=== PATIENT | male | born 1945 | race Caucasian/White ===

== ENCOUNTER 2020-08-16 07:14 | Inpatient (IN) ==
--- NOTE | 2020-08-16 08:52 | Emergency Department Note ---
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 He presents with back pain that started last night at 9PM. Initially started in the middle of his back but says now it has moved to his right side below his ribs. He says the pain began out of nowhere and he denies trauma, heavy lifting, or any other physical activity out of the ordinary for him. He denies having issues with back pain in the past. Does take APAP 1000mg every night for shoulder pain. The pain he has now is not associated with movement and he says it is constant. Does not radiate and not worse with movement of his legs. No pelvic/perineal numbness. Denies urinary changes including and noticeable blood in the urine. Reports mild nausea but no vomiting. No history of kidney stones. Denies fever, chills, unexpected weight changes, night sweats, abdominal pain, CP, palpitations, WISE, dizziness, neuro symptoms, MSK weakness/numbness. Home Medications Medication Instructions Recorded Confirmed Type ascorbic acid (vitamin C) 500 mg PO DAILY 08/16/20 08/16/20 History aspirin [Aspir-81] 81 mg PO DAILY 08/16/20 08/16/20 History atorvastatin 40 mg PO DAILY 08/16/20 08/16/20 History lansoprazole 30 mg PO DAILY 08/16/20 08/16/20 History lisinopril 40 mg PO DAILY 08/16/20 08/16/20 History lutein 20 mg PO DAILY 08/16/20 08/16/20 History gh-cbo-GR-Ce-Bf-ohsfipw-lutein 1 tab PO DAILY 08/16/20 08/16/20 History [Centrum] vitamin B complex [B Complex] 1 tab PO DAILY 08/16/20 08/16/20 History vitamin E 400 unit PO DAILY 08/16/20 08/16/20 History Allergies Allergy/AdvReac Type Severity Reaction Status Date / Time alprazolam Allergy Fainting Unverified 08/16/20 08:49 codeine Allergy Diarrhea/ Unverified 08/16/20 08:49 Vomiting rosuvastatin Allergy Diarrhea Unverified 08/16/20 08:49 warfarin Allergy Confusion Unverified 08/16/20 08:49 Past Med/Surg History Medical History Dyslipidemia GERD (gastroesophageal reflux disease) History of meningioma History of pulmonary embolism after craniotomy in 1998 Hydronephrosis of left kidney Chronic since surgery in 2010 due to "kink" in ureter from procedure Hypertension 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 w/ ileal conduit/ostomy at [facility] in 2010 Surgical History H/O partial nephrectomy Right 2011 - due to benign tumor History of craniotomy History of hemorrhoidectomy History of ileal conduit Status post radical cystoprostatectomy Social History Smoking Status: Current every day smoker Tobacco Type: Cigarettes Cigarettes Per Day: 10; Do You Dip or Chew Tobacco: No; Hx Alcohol Use: Yes Alcohol type: hard liquor Alcohol Intake Frequency Comment: 4 drinks/day Hx Substance Use: No Preferred Language: Tajik Communication Ability: Effective Medical Scheduler Required: No Beliefs That Will Affect Care: None marital status: Current Living Situation: Spouse Feels Safe at Home: Yes Assistive Devices: None Review of Systems See HPI for pertinent positives & negatives. and A total of 10 systems reviewed and were otherwise negative Physical Exam Vital Signs Vital Signs - 24 hr 08/16/20 07:16 08/16/20 07:30 08/16/20 07:41 Temperature 36.6 C Temperature Source Oral Pulse Rate 85 84 83 Pulse Rate from SpO2 Sensor 85 84 Pulse Rhythm Regular Pulse Strength Normal Respiratory Rate 18 17 18 Respiratory Effort / Characteristics Non-Labored Spontaneous Respiratory Depth Normal Respiratory Pattern Regular Blood Pressure 177/101 H 164/95 H Blood Pressure Mean 126 118 Blood Pressure Position Sitting Pulse Oximetry 98 100 100 Oxygen Delivery Method Room Air Sepsis Recent Fever Within 48 Hours No Sepsis New/Unexplained Change in Mental Status N/A Sepsis Action Taken by Nursing No Action Required 08/16/20 07:50 08/16/20 08:00 08/16/20 08:01 Temperature Temperature Source Pulse Rate 81 69 68 Pulse Rate from SpO2 Sensor 83 71 70 Pulse Rhythm Pulse Strength Respiratory Rate 18 14 13 Respiratory Effort / Characteristics Respiratory Depth Respiratory Pattern Blood Pressure 169/88 H Blood Pressure Mean 115 Blood Pressure Position Pulse Oximetry 100 100 100 Oxygen Delivery Method Sepsis Recent Fever Within 48 Hours Sepsis New/Unexplained Change in Mental Status Sepsis Action Taken by Nursing 08/16/20 08:10 08/16/20 08:20 08/16/20 08:30 Temperature Temperature Source Pulse Rate 67 72 74 Pulse Rate from SpO2 Sensor 70 70 84 Pulse Rhythm Pulse Strength Respiratory Rate 12 14 12 Respiratory Effort / Characteristics Respiratory Depth Respiratory Pattern Blood Pressure 165/88 H Blood Pressure Mean 113 Blood Pressure Position Pulse Oximetry 96 100 93 Oxygen Delivery Method Sepsis Recent Fever Within 48 Hours Sepsis New/Unexplained Change in Mental Status Sepsis Action Taken by Nursing 08/16/20 08:40 08/16/20 08:50 08/16/20 08:57 Temperature Temperature Source Pulse Rate 80 85 86 Pulse Rate from SpO2 Sensor 86 Pulse Rhythm Regular Pulse Strength Respiratory Rate 13 21 20 Respiratory Effort / Characteristics Respiratory Depth Respiratory Pattern Blood Pressure Blood Pressure Mean Blood Pressure Position Pulse Oximetry 99 98 Oxygen Delivery Method Room Air Sepsis Recent Fever Within 48 Hours Sepsis New/Unexplained Change in Mental Status Sepsis Action Taken by Nursing 08/16/20 09:00 08/16/20 09:10 08/16/20 09:20 Temperature Temperature Source Pulse Rate 69 76 74 Pulse Rate from SpO2 Sensor 73 74 Pulse Rhythm Pulse Strength Respiratory Rate 20 13 18 Respiratory Effort / Characteristics Respiratory Depth Respiratory Pattern Blood Pressure 167/104 H Blood Pressure Mean 125 Blood Pressure Position Pulse Oximetry 99 99 Oxygen Delivery Method Sepsis Recent Fever Within 48 Hours Sepsis New/Unexplained Change in Mental Status Sepsis Action Taken by Nursing 08/16/20 09:30 08/16/20 09:31 08/16/20 09:40 Temperature Temperature Source Pulse Rate 70 73 87 Pulse Rate from SpO2 Sensor 70 73 80 Pulse Rhythm Pulse Strength Respiratory Rate 23 18 29 H Respiratory Effort / Characteristics Respiratory Depth Respiratory Pattern Blood Pressure 163/94 H Blood Pressure Mean 117 Blood Pressure Position Pulse Oximetry 99 99 93 Oxygen Delivery Method Sepsis Recent Fever Within 48 Hours Sepsis New/Unexplained Change in Mental Status Sepsis Action Taken by Nursing Vital signs reviewed. General: Well-appearing 74 yo male , in no significant distress. HEENT: No scleral icterus, PERRLA, neck supple. Atraumatic. Cardiovascular: Regular rate and rhythm, no extra sounds. Pulmonary: Clear to auscultation bilaterally, normal work of breathing. Abdomen: Soft, nontender, nondistended, positive bowel sounds. Musculoskeletal: Atraumatic, no peripheral edema. Neurologic: Patient awake alert and oriented x 3 Skin: Warm, dry, no rash Course Administered Medications Acetaminophen (Acetaminophen 325 Mg Tab) 650 mg PO Q6H PRN PRN Reason: pain/fever Stop: 09/15/20 14:06 Last Admin: 08/18/20 21:08 Dose: 650 mg Documented by: [id number] Admin: 08/18/20 06:04 Dose: 650 mg Documented by: [id number] Acetaminophen (Acetaminophen 500 Mg Tab) 1,000 mg PO HS [facility] Stop: 09/15/20 20:59 Last Admin: 08/18/20 21:39 Dose: 1,000 mg Documented by: [id number] Admin: 08/17/20 21:06 Dose: 1,000 mg Documented by: [id number] Admin: 08/16/20 21:00 Dose: 1,000 mg Documented by: [id number] Aspirin (Aspirin 81 Mg Ectab) 81 mg PO DAILY [facility] Stop: 09/16/20 08:59 Last Admin: 08/19/20 08:07 Dose: 81 mg Documented by: [id number] Admin: 08/18/20 09:04 Dose: 81 mg Documented by: [id number] Admin: 08/17/20 08:33 Dose: 81 mg Documented by: [id number] Atorvastatin Calcium (Atorvastatin 40 Mg Tab) 40 mg PO DAILY [facility] Stop: 09/16/20 08:59 Last Admin: 08/19/20 08:07 Dose: 40 mg Documented by: [id number] Admin: 08/18/20 09:05 Dose: 40 mg Documented by: [id number] Admin: 08/17/20 09:25 Dose: 40 mg Documented by: [id number] Heparin Sodium (Porcine) (Heparin Sod 5,000 Unit/0.5 Ml Vial) 5,000 units SQ Q8 [facility]ARA Stop: 09/15/20 14:06 Last Admin: 08/19/20 05:53 Dose: 5,000 units Documented by: [id number] Admin: 08/18/20 21:07 Dose: 5,000 units Documented by: [id number] Admin: 08/18/20 15:35 Dose: 5,000 units Documented by: [id number] Admin: 08/18/20 06:04 Dose: 5,000 units Documented by: [id number] Admin: 08/17/20 21:06 Dose: 5,000 units Documented by: [id number] Admin: 08/17/20 14:05 Dose: 5,000 units Documented by: [id number] Admin: 08/17/20 05:05 Dose: 5,000 units Documented by: [id number] Admin: 08/16/20 21:00 Dose: 5,000 units Documented by: [id number] Admin: 08/16/20 16:46 Dose: Not Given Documented by: [id number] Ceftriaxone Sodium 2,000 mg/ (Dextrose) 70 mls @ 100 mls/hr IV DAILY TAMARA; Protocol Stop: 08/26/20 13:14 Last Infusion: 08/19/20 08:48 Dose: 0 mls/hr Documented by: [id number] Admin: 08/19/20 08:06 Dose: 100 mls/hr Documented by: [id number] Infusion: 08/18/20 10:50 Dose: 0 mls/hr Documented by: [id number] Admin: 08/18/20 09:03 Dose: 100 mls/hr Documented by: [id number] Infusion: 08/17/20 10:28 Dose: 0 mls/hr Documented by: [id number] Admin: 08/17/20 09:25 Dose: 100 mls/hr Documented by: [id number] Infusion: 08/16/20 17:27 Dose: 0 mls/hr Documented by: [id number] Admin: 08/16/20 16:45 Dose: 100 mls/hr Documented by: [id number] Sodium Chloride (Nss 1000ml) 1,000 mls @ 100 mls/hr IV .Q10H TAMARA Stop: 09/16/20 10:14 Last Admin: 08/19/20 05:53 Dose: 100 mls/hr Documented by: [id number] Infusion: 08/19/20 05:53 Dose: 100 mls/hr Documented by: [id number] Admin: 08/18/20 21:12 Dose: 100 mls/hr Documented by: [id number] Infusion: 08/18/20 21:12 Dose: 100 mls/hr Documented by: [id number] Admin: 08/18/20 18:26 Dose: 100 mls/hr Documented by: [id number] Infusion: 08/18/20 18:26 Dose: 100 mls/hr Documented by: [id number] Admin: 08/18/20 09:03 Dose: 100 mls/hr Documented by: [id number] Infusion: 08/18/20 09:03 Dose: 100 mls/hr Documented by: [id number] Admin: 08/18/20 01:55 Dose: 100 mls/hr Documented by: [id number] Infusion: 08/17/20 20:56 Dose: 100 mls/hr Documented by: [id number] Admin: 08/17/20 10:56 Dose: 100 mls/hr Documented by: [id number] Pantoprazole Sodium (Pantoprazole 40 Mg Tab) 40 mg PO QAM TAMARA Stop: 09/16/20 08:59 Last Admin: 08/19/20 08:07 Dose: 40 mg Documented by: [id number] Admin: 08/18/20 09:04 Dose: 40 mg Documented by: [id number] Admin: 08/17/20 08:33 Dose: 40 mg Documented by: [id number] Discontinued Medications Hydromorphone HCl (Hydromorphone Inj 0.5 Mg/0.5 Ml Syr) 0.5 mg IV NOW STA Stop: 08/16/20 10:00 Last Admin: 08/16/20 10:27 Dose: 0.5 mg Documented by: [id number] Hydromorphone HCl (Hydromorphone Inj 0.5 Mg/0.5 Ml Syr) Confirm Administered Dose 0.5 mg .ROUTE .STK-MED ONE Stop: 08/17/20 01:02 Last Admin: 08/17/20 01:03 Dose: 0.5 mg Documented by: [id number] Sodium Chloride (Nss 1000ml) 1,000 mls @ 125 mls/hr IV .Q8H TAMARA Stop: 08/16/20 18:00 Last Infusion: 08/16/20 17:35 Dose: 0 mls/hr Documented by: [id number] Admin: 08/16/20 10:27 Dose: 125 mls/hr Documented by: [id number] Piperacillin Sod/Tazobactam Sod (Zosyn) 4.5 gm in 120 mls @ 240 mls/hr IV NOW ONE Stop: 08/16/20 11:21 Last Infusion: 08/16/20 13:00 Dose: 0 mls/hr Documented by: [id number] Admin: 08/16/20 11:17 Dose: 240 mls/hr Documented by: [id number] Sodium Chloride (1/2 Nss) 1,000 mls @ 80 mls/hr IV .[id number] TAMARA Stop: 08/17/20 06:29 Last Admin: 08/16/20 19:13 Dose: Not Given Documented by: [id number] Sodium Chloride (Nss 1000ml) 1,000 mls @ 100 mls/hr IV .Q10H [facility]ARA Stop: 08/17/20 04:59 Last Infusion: 08/17/20 04:43 Dose: 0 mls/hr Documented by: [id number] Admin: 08/16/20 19:29 Dose: 100 mls/hr Documented by: [id number] Ondansetron HCl (Ondansetron Inj 2 Mg/Ml 2 Ml Vial) 4 mg IV NOW STA Stop: 08/16/20 10:00 Last Admin: 08/16/20 10:25 Dose: 4 mg Documented by: [id number] Medical Decision Making Differential Diagnosis Musculoskeletal, disc herniation, fracture, metastatic disease, cord compression, discitis, sciatica, cauda equina, infection, aortic disease, renal colic, gastrointestinal, as well as other pathologies. Medical Records Attestation: I reviewed the patient's medical records. Home Medications Current Medication List: was personally reviewed by me Laboratory Data Attestation: I reviewed the patient's lab results. Result diagrams: 08/18/20 05:47 08/19/20 06:38 Lab Results 08/16/20 08/16/20 08/16/20 Range/Units 08:51 08:51 10:35 WBC 12.80 H (4.8-10.8) K/uL RBC 3.70 L (4.7-6.1) M/uL Hgb 13.3 L (14.0-18.0) g/dL Hct 38.9 L (42-52) % MCV 105.1 H (80-100) fL MCH 35.9 H (25-34) pg MCHC 34.2 (32-36) g/dL RDW Std Deviation 59.4 H (36.4-46.3) fL RDW Coeff of Jayesh 15.3 H (11.5-14.5) % Plt Count 244 (130-400) K/uL MPV 10.9 H (7.4-10.4) fL Immature Gran % (Auto) 0.2 % Neut % (Auto) 87.9 % Lymph % (Auto) 8.7 % [place] % (Auto) 3.1 % Eos % (Auto) 0.0 % Baso % (Auto) 0.1 % Neut # (Auto) 11.25 H (1.4-6.5) K/uL Lymph # (Auto) 1.11 L (1.2-3.4) K/uL [place] # (Auto) 0.40 (0.11-0.59) K/uL Eos # (Auto) 0.00 (0-0.5) K/uL Baso # (Auto) 0.01 (0-0.2) K/uL Immature Gran # (Auto) 0.03 H (0.00-0.02) K/uL Sodium 143 (136-145) mmol/L Potassium 4.0 (3.5-5.1) mmol/L Chloride 111 H (98-107) mmol/L Carbon Dioxide 25 (21-32) mmol/L Anion Gap 7.0 (3-11) BUN 23 H (7-18) mg/dl Creatinine 1.79 H (0.6-1.4) mg/dl Est Cr Clr Drug Dosing 34.5 ml/min Est GFR ( Amer) 42.0 ml/min Est GFR (Non-Af Amer) 36.3 ml/min BUN/Creatinine Ratio 12.7 (10-20) Glucose 142 H (70-99) mg/dl Calcium 9.3 (8.5-10.1) mg/dl Total Bilirubin 0.6 (0.2-1) mg/dl AST 14 L (15-37) U/L ALT 23 (12-78) U/L Alkaline Phosphatase 77 (45-117) U/L Total Protein 7.4 (6.4-8.2) gm/dl Albumin 3.8 (3.4-5.0) gm/dl Globulin 3.6 (2.5-4.0) gm/dl Albumin/Globulin Ratio 1.0 (0.9-2) Urine Color Yellow Urine Appearance Cloudy A (Clear) Urine pH 8.5 H (4.5-7.5) Ur Specific [place] 1.010 (1.000-1.030) Urine Protein Negative (Negative) Urine Glucose (UA) Negative (Negative) Urine Ketones Negative (Negative) Urine Blood 3+ H (Negative) Urine Nitrite Positive A (Negative) Urine Bilirubin Negative (Negative) Urine Urobilinogen Negative (Negative) Ur Leukocyte Esterase Negative (Negative) Urine WBC (Auto) 10-30 H (0-5) /hpf Urine RBC (Auto) 10-30 H (0-4) /hpf U Hyaline Cast (Auto) 5-10 H (0-5) /lpf U Epithel Cells (Auto) >30 H (0-5) /lpf Urine Bacteria (Auto) 4+ H (Negative) Ur Renal Epithelial Cell Not Reportable COVID-19 Eval Order SARS-CoV-2 (PCR) (Negative) 08/16/20 08/16/20 Range/Units 11:06 11:06 WBC (4.8-10.8) K/uL RBC (4.7-6.1) M/uL Hgb (14.0-18.0) g/dL Hct (42-52) % MCV (80-100) fL MCH (25-34) pg MCHC (32-36) g/dL RDW Std Deviation (36.4-46.3) fL RDW Coeff of Jayesh (11.5-14.5) % Plt Count (130-400) K/uL MPV (7.4-10.4) fL Immature Gran % (Auto) % Neut % (Auto) % Lymph % (Auto) % [place] % (Auto) % Eos % (Auto) % Baso % (Auto) % Neut # (Auto) (1.4-6.5) K/uL Lymph # (Auto) (1.2-3.4) K/uL [place] # (Auto) (0.11-0.59) K/uL Eos # (Auto) (0-0.5) K/uL Baso # (Auto) (0-0.2) K/uL Immature Gran # (Auto) (0.00-0.02) K/uL Sodium (136-145) mmol/L Potassium (3.5-5.1) mmol/L Chloride (98-107) mmol/L Carbon Dioxide (21-32) mmol/L Anion Gap (3-11) BUN (7-18) mg/dl Creatinine (0.6-1.4) mg/dl Est Cr Clr Drug Dosing ml/min Est GFR ( Amer) ml/min Est GFR (Non-Af Amer) ml/min BUN/Creatinine Ratio (10-20) Glucose (70-99) mg/dl Calcium (8.5-10.1) mg/dl Total Bilirubin (0.2-1) mg/dl AST (15-37) U/L ALT (12-78) U/L Alkaline Phosphatase (45-117) U/L Total Protein (6.4-8.2) gm/dl Albumin (3.4-5.0) gm/dl Globulin (2.5-4.0) gm/dl Albumin/Globulin Ratio (0.9-2) Urine Color Urine Appearance (Clear) Urine pH (4.5-7.5) Ur Specific [place] (1.000-1.030) Urine Protein (Negative) Urine Glucose (UA) (Negative) Urine Ketones (Negative) Urine Blood (Negative) Urine Nitrite (Negative) Urine Bilirubin (Negative) Urine Urobilinogen (Negative) Ur Leukocyte Esterase (Negative) Urine WBC (Auto) (0-5) /hpf Urine RBC (Auto) (0-4) /hpf U Hyaline Cast (Auto) (0-5) /lpf U Epithel Cells (Auto) (0-5) /lpf Urine Bacteria (Auto) (Negative) Ur Renal Epithelial Cell COVID-19 Eval Order Covid19 at [facility] SARS-CoV-2 (PCR) NEGATIVE (Negative) Imaging Data Radiologist's Impression: Abdomen/Pelvis CT 08/16/20 09:[address] WITHOUT CONTRAST CT DOSE: 308.09 mGy.cm HISTORY: Right upper quadrant pain. Right-sided back pain. TECHNIQUE: Multiaxial CT images of the abdomen and pelvis were performed without contrast. A dose lowering technique was utilized adhering to the principles of ALARA. COMPARISON STUDY: None. FINDINGS: Mild dependent changes seen at the lung bases. No pneumoperitoneum. No pneumatosis. No suspicious lytic or blastic osseous lesions. There is a 1.5 cm hypodense lesion within the posterior segment of the right hepatic lobe. This is incompletely characterized on this noncontrast study but favors a cyst. The unenhanced gallbladder, spleen, and pancreas are unremarkable. Bilateral adrenal gland nodules with the largest on the right measuring 1.3 cm. These are consistent with benign adenomas. Calcified plaque within the normal caliber abdominal aorta. No retroperitoneal lymphadenopathy. Postoperative changes consistent with prior cystoprostatectomy and right lower quadrant ileal loop div ersion. There is extensive bilateral perinephric edema/fat stranding with bilateral urothelial thickening within the renal collecting systems and ureters. There is also right-sided periureteral fat stranding. There is mild right and moderate left hydronephrosis. No renal or ureteral stones identified. The hydronephrosis extends to the anastomosis with the ileal loop. Small focus of fat and calcification within the lateral aspect of the right kidney. This favors old postoperative change. There is greater than expected inflammatory change anterior to the right kidney and located between the second portion of the duodenum and ascending colon best seen on image 146. This is indeterminate. No definite bowel wall thickening. However, a focal duodenitis/peptic ulcer disease or less likely diverticulitis/colitis would be considered in the differential diagnosis. This could relate to the right renal abnormality. However, this is more anterior than expected to suggest a right renal etiology. Diastases with a midline abdominal wall hernia containing a few loops of large and small bowel. No dilated loops of bowel to suggest an obstruction. The visualized appendix is unremarkable. Overall, there are suboptimal evaluation for bowel pathology due to the lack of intravenous and oral contrast. IMPRESSION: 1. Postoperative changes consistent with prior cystoprostatectomy and right lower quadrant ileal loop diversion. 2. Mild right and moderate left hydronephrosis to the level of the ileal anastomosis. No renal or ureteral stones identified. 3. Bilateral perinephric fat stranding with bilateral urothelial thickening likely representing a bilateral pyelitis/pyelonephritis. 4. A focal area of fat stranding/edema within the right upper quadrant located between the second portion of the duodenum and adjacent ascending colon. This is anterior to the right kidney. This is indeterminate. There is no definite bowel wall thickening. However, a focal duodenitis/peptic ulcer disease or less likely an adjacent diverticuli/colitis would be considered in the differential diagnosis. Inflammatory change secondary to the adjacent right renal abnormality is considered less likely but not entirely excluded. 5. Additional findings as described above. ACT 112: Negative or not required by law. Electronically signed by: Vazquez Yu M.D. 08/16/2020 10:45 AM MDM Narrative This patient was seen in concert with Dr. Hills and we discussed and agreed upon the history, physical, assessment, and plan. See attending's note for details. This patient evaluated and appeared to be in no significant distress. An order for cardiac monitoring was placed and the patient is noted to be in a normal sinus rhythm at 81 bpm. Patient's urinalysis is concerning for infection. CT scan of the abdomen pelvis was performed and reveals a bilateral hydronephrosis with evidence of pyelonephritis. Patient was medicated with IV Zosyn. He was hydrated with normal saline solution. Patient does have a small elevation of the WBC, moderate renal insufficiency. Case was discussed with the hospitalist service given his multiple comorbidities and surgical complication. Case was discussed with the hospitalist service for further management. Impression & Plan Bilateral hydronephrosis, Pyelonephritis, acute, Presence of urostomy Discharge Plan Visit Data Chief Complaint: Back Injury/Pain Stated Complaint: BACK PAIN ED Provider: [facility] Midlevel Provider: Victor M Garcia. Discharge Problem: Bilateral hydronephrosis, Pyelonephritis, acute, Presence of urostomy Patient Disposition: Admitted As Inpatient Discharge Instructions Interventions: ED Discharge Assessment Last Done: 08/16/20 14:09 Resident Activity Tracking Resident Involvement: Resident Care Provided Care Provided: Adult ED
[2020-08-16 09:33] LABS: Basophils # (auto) 0.01 K/uL (0-0.2); Basophils % (auto) 0.1 %; Hematocrit (blood only) 38.9 % (42-52); Hemoglobin 13.3 g/dL (14.0-18.0); Immature Granulocytes # (auto) 0.03 K/uL (0.00-0.02); Immature Granulocytes % (auto) 0.2 %; Lymphocytes # (auto) 1.11 K/uL (1.2-3.4); Lymphocytes % (auto) 8.7 %; Mean Corpuscular Hemoglobin 35.9 pg (25-34); Mean Corpuscular Hgb Conc 34.2 g/dL (32-36); Mean Corpuscular Volume 105.1 fL (80-100); Mean Platelet Volume 10.9 fL (7.4-10.4); Monocytes % (auto) 3.1 %; Neutrophils # (auto) 11.25 K/uL (1.4-6.5); Neutrophils % (auto) 87.9 %; Platelet Count 244 K/uL (130-400); RDW Coefficient of Variation 15.3 % (11.5-14.5); RDW Standard Deviation 59.4 fL (36.4-46.3)
[2020-08-16 09:51] LABS: Albumin Level 3.8 gm/dl (3.4-5.0); BUN Creatinine Ratio 12.7 (10-20); Calcium 9.3 mg/dl (8.5-10.1); Creatinine Clr Calc Pharmacy 34.5 ml/min; Est GFR (Non-African American) 36.3 ml/min
[2020-08-16 09:54] LABS: Bilirubin,Total 0.6 mg/dl (0.2-1); Globulin 3.6 gm/dl (2.5-4.0); Total Protein 7.4 gm/dl (6.4-8.2)
[2020-08-16] MEDS ORDERED: HYDROmorphone INJ 0.5 MG/0.5 ML SYR IV STA (09:59)
[2020-08-16] MEDS ORDERED: ONDANSETRON INJ 2 MG/ML 2 ML VIAL IV STA (09:59)
[2020-08-16] MEDS ORDERED: SODIUM CHLORIDE 0.9% 1000ML 1,000 ML IV SCH ×2 (10:00→19:00)
[2020-08-16 10:46] LABS: Appearance Urine Cloudy (Clear); Bacteria Urine Automated 4+ (Negative); Bilirubin Urine Negative (Negative); Blood Urine 3+ (Negative); Color Urine Yellow; Epithelial Cell Urine Auto >30 /lpf (0-5); Glucose Urine UA Negative (Negative); Ketones Urine Negative (Negative); Leukocyte Esterase Urine Negative (Negative); Nitrite Urine Positive (Negative); Protein Urine Negative (Negative); Urobilinogen Urine Negative (Negative); pH Urine 8.5 (4.5-7.5)
--- NOTE | 2020-08-16 10:46 | CT Scan Report ---
ABDOMEN AND PELVIS CT WITHOUT CONTRAST CT DOSE: 308.09 mGy.cm HISTORY: Right upper quadrant pain. Right-sided back pain. TECHNIQUE: Multiaxial CT images of the abdomen and pelvis were performed without contrast. A dose lo wering technique was utilized adhering to the principles of ALARA. COMPARISON STUDY: None. FINDINGS: Mild dependent changes seen at the lung bases. No pneumoperitoneum. No pneumatosis. No susp icious lytic or blastic osseous lesions. There is a 1.5 cm hypodense lesion within the posterior segm ent of the right hepatic lobe. This is incompletely characterized on this noncontrast study but favor s a cyst. The unenhanced gallbladder, spleen, and pancreas are unremarkable. Bilateral adrenal gland nodules with the largest on the right measuring 1.3 cm. These are consistent with benign adenomas. Ca lcified plaque within the normal caliber abdominal aorta. No retroperitoneal lymphadenopathy. Postope rative changes consistent with prior cystoprostatectomy and right lower quadrant ileal loop diversion . There is extensive bilateral perinephric edema/fat stranding with bilateral urothelial thickening w ithin the renal collecting systems and ureters. There is also right-sided periureteral fat stranding. There is mild right and moderate left hydronephrosis. No renal or ureteral stones identified. The hy dronephrosis extends to the anastomosis with the ileal loop. Small focus of fat and calcification wit hin the lateral aspect of the right kidney. This favors old postoperative change. There is greater th an expected inflammatory change anterior to the right kidney and located between the second portion o f the duodenum and ascending colon best seen on image 146. This is indeterminate. No definite bowel w all thickening. However, a focal duodenitis/peptic ulcer disease or less likely diverticulitis/coliti s would be considered in the differential diagnosis. This could relate to the right renal abnormality . However, this is more anterior than expected to suggest a right renal etiology. Diastases with a mi dline abdominal wall hernia containing a few loops of large and small bowel. No dilated loops of hien l to suggest an obstruction. The visualized appendix is unremarkable. Overall, there are suboptimal e valuation for bowel pathology due to the lack of intravenous and oral contrast. IMPRESSION: 1. Postoperative changes consistent with prior cystoprostatectomy and right lower quadrant ileal loop diversion. 2. Mild right and moderate left hydronephrosis to the level of the ileal anastomosis. No renal or ure teral stones identified. 3. Bilateral perinephric fat stranding with bilateral urothelial thickening likely representing a rj ateral pyelitis/pyelonephritis. 4. A focal area of fat stranding/edema within the right upper quadrant located between the second por tion of the duodenum and adjacent ascending colon. This is anterior to the right kidney. This is inde terminate. There is no definite bowel wall thickening. However, a focal duodenitis/peptic ulcer disea se or less likely an adjacent diverticuli/colitis would be considered in the differential diagnosis. Inflammatory change secondary to the adjacent right renal abnormality is considered less likely but n ot entirely excluded. 5. Additional findings as described above. ACT 112: Negative or not required by law. Electronically signed by: Vazquez Yu M.D. 08/16/2020 10:45 AM
[2020-08-16] MEDS ORDERED: PIPERACILLIN/TAZOBACTAM 4.5 GM/120 ML BAG IV ONE (10:52)
[2020-08-16] MEDS ORDERED: PIPERACILL/TAZOBAC CONSULT ACTIVE PRN (10:52)
--- NOTE | 2020-08-16 12:44 | History & Physical Report ---
Date of Service August 16, 2020 Assessment & Plan (1) Pyelonephritis, acute: - Urine culture pending - Given one dose of Zosyn in ED - will switch to Rocephin pending culture results. - Clear liquid diet to start due to nausea - will advance as tolerated - PRN Zofran for nausea - Gentle IVF (2) DHARA (acute kidney injury): Suspect due to #1 - Follow labs daily for improvement - creatinine outpatient in June was 1.1 (no prior labs available to me) (3) Hypertension: HOLD Lisinopril due to DHARA - reassess in AM, monitor BP (4) GERD (gastroesophageal reflux disease): - Continue outpatient PPI therapy (5) Dyslipidemia: - Continue outpatient statin therapy Pt seen and reviewed with attending physician, Dr. Heart. Plan of care discussed and as outlined above. 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 Pt reports started with a mild aching in his mid-back last evening. By 9 pm when he went to bed, it had become more severe and sharp. It took him ~3 hrs to fall asleep due to pain and associated nausea. Once he did fall asleep, the pain kept waking him up. Around 3 am, the pain move from the middle of his back to the right thoracic region. He rated it as a 6/10 at its worst. He finally came to the ED due to the severity of his symptoms. He denies significant vomiting although he reports that he did try to self-induce vomiting without success. No radiation of the pain. He denies fevers, chills, sweats, CP, SOB, palpitations, or dizziness. He did have a WISE last night but this improved with the Tylenol 1000 mg that pt takes every night for left shoulder pain due to arthritis. Currently, he is feeling better than on arrival with medications for pain and nausea. He reports chronic left hydronephrosis since his surgery in 2010, but denies hx of right hydronephrosis. His last UTI was prior to his surgery in 2010 when he presented with urosepsis. He denies change in urinary output - no decrease/increase in volume, change in color. Denies blood in urine. He follows with [facility] once a year, usually in November and reports no issues at last follow-up including negative "full body scan" monitoring for recurrent disease. Allergies Allergy/AdvReac Type Severity Reaction Status Date / Time alprazolam Allergy Fainting Unverified 08/16/20 08:49 codeine Allergy Diarrhea/ Unverified 08/16/20 08:49 Vomiting rosuvastatin Allergy Diarrhea Unverified 08/16/20 08:49 warfarin Allergy Confusion Unverified 08/16/20 08:49 Home Medications Medication Instructions Recorded Confirmed Type ascorbic acid (vitamin C) 500 mg PO DAILY 08/16/20 08/16/20 History aspirin 81 mg PO DAILY 08/16/20 08/16/20 History atorvastatin 40 mg PO DAILY 08/16/20 08/16/20 History lansoprazole 30 mg PO DAILY 08/16/20 08/16/20 History lisinopril 40 mg PO DAILY 08/16/20 08/16/20 History lutein 20 mg PO DAILY 08/16/20 08/16/20 History [id number]-Dd-vehdpgp-lutein 1 tab PO DAILY 08/16/20 08/16/20 History vitamin B complex 1 tab PO DAILY 08/16/20 08/16/20 History vitamin E 400 unit PO DAILY 08/16/20 08/16/20 History Past Med/Surg History Medical History Dyslipidemia GERD (gastroesophageal reflux disease) History of meningioma History of pulmonary embolism after craniotomy in 1998 Hydronephrosis of left kidney Chronic since surgery in 2010 due to "kink" in ureter from procedure Hypertension 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 w/ ileal conduit/ostomy at [facility] in 2010 Surgical History H/O partial nephrectomy Right 2011 - due to benign tumor History of craniotomy History of hemorrhoidectomy History of ileal conduit Status post radical cystoprostatectomy Social History Smoking Status: Current every day smoker Tobacco Type: Cigarettes Cigarettes Per Day: 10; Hx Alcohol Use: Yes Alcohol type: hard liquor Alcohol Intake Frequency Comment: 4 drinks/day Hx Substance Use: No Preferred Language: Greenlandic Communication Ability: Effective Machine Design Engineer Required: No Beliefs That Will Affect Care: None marital status: Current Living Situation: Spouse Feels Safe at Home: Yes Assistive Devices: None Review of Systems Review of Systems: All systems reviewed & are unremarkable except as noted in HPI & below Constitutional: + fatigue; no fever, no chills, no sweats and no anorexia Eyes: no diplopia and no worsening vision Ear, Nose, Mouth, Throat: no nasal congestion, no nasal discharge and no sore throat Respiratory: no cough, no dyspnea, no sputum production and no wheezing Cardiovascular: no chest pain, no palpitations, no syncope and no edema Gastrointestinal: as per Subjective / HPI; no diarrhea/loose stools and no blood in stools Genitourinary: + as per Subjective / HPI Musculoskeletal: + back pain; no neck pain, no myalgia and no muscle weakness Integumentary: no rash and no skin ulcer Neurologic: no seizure-like activity, no dizziness, no headache(s) and no confusion Psychiatric: no depression and no anxiety Physical Exam Constitutional: WD/WN, vitals as above no acute distress Eyes: + anicteric sclerae Neck: trachea midline Respiratory: no respiratory distress and no labored breathing Auscultation: lungs clear to auscultation bilaterally; no rales, no rhonchi and no wheezes Cardiovascular: Rate/Rhythm: regular rate and regular rhythm Heart Sounds: no gallop, no murmur and no cardiac rub Vessels: dorsalis pedis pulses pre sent and radial pulses present; no carotid bruit Extremities: no edema Gastrointestinal (Abdomen): Inspection/Auscultation: normal bowel sounds; abdomen not distended Percussion/Palpation: abdomen soft; abdomen nontender No CVA tenderness Musculoskeletal: Head/Neck/Chest: normocephalic, head atraumatic and neck supple Spine: no step off deformity, no thoracic spinal tenderness and no lumbar spinal tenderness Extremities: no cyanosis and no clubbing Skin: no rashes, warm and dry Neurologic: no focal motor deficits Psychiatric: A+Ox3, euthymic affect Results & Data Results & Data ([facility]) Vital Signs (Past 12 Hours) Vital Signs Temp Pulse Resp BP Pulse Ox 08/16/20 11:00 90 23 165/95 H 94 08/16/20 10:20 81 25 H 98 08/16/20 09:40 87 29 H 93 08/16/20 09:31 73 18 99 08/16/20 09:30 70 23 163/94 H 99 08/16/20 09:20 74 18 99 08/16/20 09:10 76 13 99 08/16/20 09:00 69 20 167/104 H 08/16/20 08:57 86 20 98 08/16/20 08:50 85 21 99 08/16/20 08:40 80 13 08/16/20 08:30 74 12 165/88 H 93 08/16/20 08:20 72 14 100 08/16/20 08:10 67 12 96 08/16/20 08:01 68 13 100 08/16/20 08:00 69 14 169/88 H 100 08/16/20 07:50 81 18 100 08/16/20 07:41 83 18 100 08/16/20 07:30 84 17 164/95 H 100 08/16/20 07:16 36.6 C 85 18 177/101 H 98 Laboratory Results Laboratory Results - last 24 hr 08/16/20 08/16/20 08/16/20 08:51 08:51 10:35 WBC 12.80 H RBC 3.70 L Hgb 13.3 L Hct 38.9 L MCV 105.1 H MCH 35.9 H MCHC 34.2 RDW Std Deviation 59.4 H RDW Coeff of Jayesh 15.3 H Plt Count 244 MPV 10.9 H Immature Gran % (Auto) 0.2 Neut % (Auto) 87.9 Lymph % (Auto) 8.7 [place] % (Auto) 3.1 Eos % (Auto) 0.0 Baso % (Auto) 0.1 Neut # (Auto) 11.25 H Lymph # (Auto) 1.11 L [place] # (Auto) 0.40 Eos # (Auto) 0.00 Baso # (Auto) 0.01 Immature Gran # (Auto) 0.03 H Sodium 143 Potassium 4.0 Chloride 111 H Carbon Dioxide 25 Anion Gap 7.0 BUN 23 H Creatinine 1.79 H Est Cr Clr Drug Dosing 34.5 Est GFR ( Amer) 42.0 Est GFR (Non-Af Amer) 36.3 BUN/Creatinine Ratio 12.7 Glucose 142 H Calcium 9.3 Total Bilirubin 0.6 AST 14 L ALT 23 Alkaline Phosphatase 77 Total Protein 7.4 Albumin 3.8 Globulin 3.6 Albumin/Globulin Ratio 1.0 Urine Color Yellow Urine Appearance Cloudy A Urine pH 8.5 H Ur Specific [place] 1.010 Urine Protein Negative Urine Glucose (UA) Negative Urine Ketones Negative Urine Blood 3+ H Urine Nitrite Positive A Urine Bilirubin Negative Urine Urobilinogen Negative Ur Leukocyte Esterase Negative Urine WBC (Auto) 10-30 H Urine RBC (Auto) 10-30 H U Hyaline Cast (Auto) 5-10 H U Epithel Cells (Auto) >30 H Urine Bacteria (Auto) 4+ H Ur Renal Epithelial Cell Not Reportable COVID-19 Eval Order SARS-CoV-2 (PCR) 08/16/20 08/16/20 11:06 11:06 WBC RBC Hgb Hct MCV MCH MCHC RDW Std Deviation RDW Coeff of Jayesh Plt Count MPV Immature Gran % (Auto) Neut % (Auto) Lymph % (Auto) [place] % (Auto) Eos % (Auto) Baso % (Auto) Neut # (Auto) Lymph # (Auto) [place] # (Auto) Eos # (Auto) Baso # (Auto) Immature Gran # (Auto) Sodium Potassium Chloride Carbon Dioxide Anion Gap BUN Creatinine Est Cr Clr Drug Dosing Est GFR ( Amer) Est GFR (Non-Af Amer) BUN/Creatinine Ratio Glucose Calcium Total Bilirubin AST ALT Alkaline Phosphatase Total Protein Albumin Globulin Albumin/Globulin Ratio Urine Color Urine Appearance Urine pH Ur Specific [place] Urine Protein Urine Glucose (UA) Urine Ketones Urine Blood Urine Nitrite Urine Bilirubin Urine Urobilinogen Ur Leukocyte Esterase Urine WBC (Auto) Urine RBC (Auto) U Hyaline Cast (Auto) U Epithel Cells (Auto) Urine Bacteria (Auto) Ur Renal Epithelial Cell COVID-19 Eval Order Covid19 at [facility] SARS-CoV-2 (PCR) NEGATIVE Diagnostic Findings CT Abd/Pel 08/16/20 - IMPRESSION: 1. Postoperative changes consistent with prior cystoprostatectomy and right lower quadrant ileal loop diversion. 2. Mild right and moderate left hydronephrosis to the level of the ileal anastomosis. No renal or ureteral stones identified. 3. Bilateral perinephric fat stranding with bilateral urothelial thickening likely representing a bilateral pyelitis/pyelonephritis. 4. A focal area of fat stranding/edema within the right upper quadrant located between the second portion of the duodenum and adjacent ascending colon. This is anterior to the right kidney. This is indeterminate. There is no definite bowel wall thickening. However, a focal duodenitis/peptic ulcer disease or less likely an adjacent diverticuli/colitis would be considered in the differential diagnosis. Inflammatory change secondary to the adjacent right renal abnormality is considered less likely but not entirely excluded. 5. Additional findings as described above. Medications Administered Sodium Chloride (Nss 1000ml) 1,000 mls @ 125 mls/hr IV .Q8H TAMARA Stop: 09/15/20 09:59 Last Admin: 08/16/20 10:27 Dose: 125 mls/hr Documented by: [id number] Discontinued Medications Hydromorphone HCl (Hydromorphone Inj 0.5 Mg/0.5 Ml Syr) 0.5 mg IV NOW STA Stop: 08/16/20 10:00 Last Admin: 08/16/20 10:27 Dose: 0.5 mg Documented by: [id number] Piperacillin Sod/Tazobactam Sod (Zosyn) 4.5 gm in 120 mls @ 240 mls/hr IV NOW ONE Stop: 08/16/20 11:21 Last Admin: 08/16/20 11:17 Dose: 240 mls/hr Documented by: [id number] Ondansetron HCl (Ondansetron Inj 2 Mg/Ml 2 Ml Vial) 4 mg IV NOW STA Stop: 08/16/20 10:00 Last Admin: 08/16/20 10:25 Dose: 4 mg Documented by: [id number] Code Status & VTE Plan VTE Prophylaxis Plan VTE Prophylaxis will be ordered: Yes Supervising Physician Co-Signing Physician Notes 74 y/o male with a 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 Pt said that by the time he was ready to go to bed, his pain get worst. He said that in the middle of the night the pain radiated to his right thoracic region. [place] any chest pain, palpitation, dizziness, SOB and fever. In the ER, CT abd/pelvis showed mild right and moderate left hydronephrosis to the level of the ileal anastomosis. Bilateral perinephric fat stranding with bilateral urothelial thickening likely representing a bilateral pyelitis/pyelonephritis. Received IVF, Zosyn and IV pain med in the ER. UA showed trace leukocytes. Creatinine 1.7. Urine cx collected and pending. Will change abx to Rocephin. Continue IVF . Will monitor BMP. Will Consider urology consult if worsening. Continue monitor closely. MD Sly (1) GERD (gastroesophageal reflux disease) Esophagitis presence: without esophagitis Qualified Code(s): K21.9 - Gastro- esophageal reflux disease without esophagitis (2) Hypertension Hypertension type: essential hypertension Qualified Code(s): I10 - Essential (primary) hypertension
[2020-08-16] MEDS ORDERED: ONDANSETRON INJ 2 MG/ML 2 ML VIAL IV PRN (14:07)
[2020-08-16] MEDS ORDERED: LORazepam 1 MG TAB PO PRN (14:07)
[2020-08-16] MEDS: cefTRIAXone SODIUM 2,000 MG in DEXTROSE 5% 50 ML IV SCH (16:45)
[2020-08-16] MEDS: HEPARIN SOD 5,000 UNIT/0.5 ML VIAL SQ SCH ×2 (16:46→21:00)
[2020-08-16] MEDS ORDERED: SODIUM CHLORIDE 0.45 % 1,000 ML IV SCH (18:00)
[2020-08-16] MEDS: ACETAMINOPHEN 500 MG TAB PO SCH (21:00)
[2020-08-17] MEDS ORDERED: HYDROmorphone INJ 0.5 MG/0.5 ML SYR IV PRN (00:36)
[2020-08-17] MEDS ORDERED: traMADol HCL 50 MG TABLET PO PRN (00:36)
[2020-08-17] MEDS ORDERED: HYDROmorphone INJ 0.5 MG/0.5 ML SYR ONE (01:01)
[2020-08-17] MEDS: HEPARIN SOD 5,000 UNIT/0.5 ML VIAL SQ SCH ×3 (05:05→21:06)
[2020-08-17 07:21] LABS: Basophils # (auto) 0.02 K/uL (0-0.2); Basophils % (auto) 0.2 %; Eosinophils # (auto) 0.02 K/uL (0-0.5); Eosinophils % (auto) 0.2 %; Hematocrit (blood only) 36.9 % (42-52); Hemoglobin 12.4 g/dL (14.0-18.0); Immature Granulocytes # (auto) 0.02 K/uL (0.00-0.02); Immature Granulocytes % (auto) 0.2 %; Lymphocytes # (auto) 0.69 K/uL (1.2-3.4); Lymphocytes % (auto) 5.7 %; Mean Corpuscular Hemoglobin 35.3 pg (25-34); Mean Corpuscular Hgb Conc 33.6 g/dL (32-36); Mean Corpuscular Volume 105.1 fL (80-100); Monocytes # (auto) 1.58 K/uL (0.11-0.59); Neutrophils # (auto) 9.87 K/uL (1.4-6.5); Neutrophils % (auto) 80.7 %; Platelet Count 216 K/uL (130-400); RDW Coefficient of Variation 15.8 % (11.5-14.5); RDW Standard Deviation 60.8 fL (36.4-46.3); Red Blood Count 3.51 M/uL (4.7-6.1)
[2020-08-17 07:23] LABS: BUN Creatinine Ratio 8.7 (10-20); Calcium 8.7 mg/dl (8.5-10.1); Creatinine Clr Calc Pharmacy 19.9 ml/min; Est GFR (African American) 21.5 ml/min; Est GFR (Non-African American) 18.6 ml/min; Potassium 4.5 mmol/L (3.5-5.1)
[2020-08-17] MEDS: PANTOprazole 40 MG TAB PO SCH (08:33)
[2020-08-17] MEDS: ASPIRIN 81 MG ECTAB PO SCH (08:33)
[2020-08-17] MEDS: ATORVASTATIN 40 MG TAB PO SCH (09:25)
[2020-08-17] MEDS: cefTRIAXone SODIUM 2,000 MG in DEXTROSE 5% 50 ML IV SCH (09:25)
--- NOTE | 2020-08-17 10:33 | Urology Consultation ---
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 -Urology consulted for bilateral hydronephrosis. -Plan of care reviewed with Dr. Lauren, urologist magician/illusionist. -Patient afebrile. -Labs reviewed - white count and creatinine elevated. -Urine culture with more than three organisms, all high counts. -Imaging reviewed - mild right and moderate left hydronephrosis to the level of the ileal anastomosis, likely refluxing anastomosis with superimposed infection. -Recommend continue supportive care and antibiotic therapy. -If he becomes febrile, or acutely declines, would recommend transferring to tertiary care for percutaneous nephrostomy tube placement. -Presuming he remains stable, antibiotics and close observation are reasonable. -Will continue to follow while inpatient. 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 His symptoms worsened in severity, in which prompted him to proceed to ER. Urology consulted for bilateral hydronephrosis. Per chart review - He reports chronic left hydronephrosis since his surgery in 2010, but denies hx of right hydronephrosis. He follows with [facility] once a year, usually in November and reports no issues at last follow-up including negative "full body scan" monitoring for recurrent disease.Does have history of urosepsis in 2010 prior to surgical procedure. Chart review: Afebrile Wbc 12.20 Hgb 12.4 Cr 3.11 Urinalysis 3+blood, positive nitrite, negative leukocytes, 10-30WBC, 10-30RBC, 4+bacteria. Urine culture from 08/16 with more than three types of organisms, all high counts On IV Ceftriaxone CT abdomen pelvis: 1. Postoperative changes consistent with prior cystoprostatectomy and right lower quadrant ileal loop diversion. 2. Mild right and moderate left hydronephrosis to the level of the ileal anastomosis. No renal or ureteral stones identified. 3. Bilateral perinephric fat stranding with bilateral urothelial thickening likely representing a bilateral pyelitis/pyelonephritis. 4. A focal area of fat stranding/edema within the right upper quadrant located between the second portion of the duodenum and adjacent ascending colon. This is anterior to the right kidney. This is indeterminate. There is no definite bowel wall thickening. However, a focal duodenitis/peptic ulcer disease or less likely an adjacent diverticuli/colitis would be considered in the differential diagnosis. Inflammatory change secondary to the adjacent right renal abnormality is considered less likely but not entirely excluded. Pt examined at bedside this AM. Awake, resting in bed on arrival. Patient reports resolution of the right-sided back pain since admission. He currently denies any pain or discomfort. Denies fevers or chills. Tolerating diet, no nausea or vomiting. Ileal conduit intact, draining cloudy yellow urine. He denies any hematuria. He reports following with his surgeon at [facility] yearly. He last saw a urologist approximately 3 years ago, cannot recall name. He reports his baseline creatinine ~1.3. No additional complaints or concerns at this time. Allergies Allergy/AdvReac Type Severity Reaction Status Date / Time alprazolam Allergy Fainting Unverified 08/16/20 08:49 codeine Allergy Diarrhea/ Unverified 08/16/20 08:49 Vomiting rosuvastatin Allergy Diarrhea Unverified 08/16/20 08:49 warfarin Allergy Confusion Unverified 08/16/20 08:49 Home Medications Medication Instructions Recorded Confirmed Type ascorbic acid (vitamin C) 500 mg PO DAILY 08/16/20 08/16/20 History aspirin [Aspir-81] 81 mg PO DAILY 08/16/20 08/16/20 History atorvastatin 40 mg PO DAILY 08/16/20 08/16/20 History lansoprazole 30 mg PO DAILY 08/16/20 08/16/20 History lisinopril 40 mg PO DAILY 08/16/20 08/16/20 History lutein 20 mg PO DAILY 08/16/20 08/16/20 History df-mcc-XD-Tf-Jd-jzjaavp-lutein 1 tab PO DAILY 08/16/20 08/16/20 History [Centrum] vitamin B complex [B Complex] 1 tab PO DAILY 08/16/20 08/16/20 History vitamin E 400 unit PO DAILY 08/16/20 08/16/20 History Patient History Medical History (Updated 08/17/20 @ 11:53 by CORRINE Greene) Dyslipidemia GERD (gastroesophageal reflux disease) History of meningioma History of pulmonary embolism after craniotomy in 1998 Hydronephrosis of left kidney Chronic since surgery in 2010 due to "kink" in ureter from procedure Hypertension 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 w/ ileal conduit/ostomy at [facility] in 2010 Surgical History (Updated 08/16/20 @ 12:42 by Britney Nash PA-C) H/O partial nephrectomy Right 2011 - due to benign tumor History of craniotomy History of hemorrhoidectomy History of ileal conduit Status post radical cystoprostatectomy Social History (Updated 08/16/20 @ 12:43 by Britney Nash PA-C) Smoking Status: Current every day smoker Tobacco Type: Cigarettes Cigarettes Per Day: 10; Do You Dip or Chew Tobacco: No; Hx Alcohol Use: Yes Alcohol type: hard liquor Alcohol Intake Frequency Comment: 4 drinks/day Hx Substance Use: No Preferred Language: Tajik Communication Ability: Effective Security Systems Specialist Required: No Beliefs That Will Affect Care: None marital status: Current Living Situation: Spouse Feels Safe at Home: Yes Assistive Devices: None Review of Systems Review of Systems: All systems reviewed & are unremarkable except as noted in HPI & below Physical Exam Constitutional: well developed and well nourished; no acute distress Respiratory: normal respiratory effort and able to speak in complete sentences; no labored breathing and no audible wheezes Cardiovascular: Extremities: no calf tenderness Gastrointestinal (Abdomen): Percussion/Palpation: abdomen soft; abdomen nontender and no guarding Musculoskeletal: Head/Neck/Chest: normocephalic Skin: no rashes, warm and dry Neurologic: moves all extremities and awake Psychiatric: A+Ox3, euthymic affect Genitourinary: no CVA tenderness Ileal conduit patent and draining with cloudy yellow urine Results & Data ([facility]) Vital Signs (Past 12 Hours) Vital Signs Temp Pulse Resp BP Pulse Ox 08/17/20 07:41 36.7 C 65 16 168/86 H 97 08/16/20 22:59 36.9 C 61 16 154/81 H 94 PG Care Time/CCT Total # of Minutes Spent Total Time Spent with Patient: Total time spent is greater than 50% in coordination of care (as documented) at patient's floor/unit and/or counseling patient: Coding Level of Care Code 21517 Initial Inpt Care Lvl 3 Diagnoses Bilateral hydronephrosis N13.30 Pyelonephritis, acute N10 DHARA (acute kidney injury) N17.9
[2020-08-17] MEDS: SODIUM CHLORIDE 0.9% 1000ML 1,000 ML IV SCH (10:56)
--- NOTE | 2020-08-17 17:55 | Hospitalist Progress Note ---
Date of Service August 17, 2020 Assessment & Plan (1) Pyelonephritis, acute: Present on admission with right sided back pain associated with nausea Abd/pelvis showed bilateral perinephric fat stranding with bilateral urothelial thickening likely representing a bilateral pyelitis/pyelonephritis. Received IV Zosyn in the ED Currently on IV Rocephin daily Blood cx showed multiple organisms (Mostly contamination) Continue IV abx for now (2) Bilateral hydronephrosis: CT abd/pelvis showed mild right and moderate left hydronephrosis to the level of the ileal anastomosis. Urology on board recommended continue supportive care and antibiotic therapy If he becomes febrile, or acutely declines, would recommend transferring to tertiary care for percutaneous nephrostomy tube placement as per Urology (3) DHARA (acute kidney injury): Creatinine worsening to 3.3 Creatinine outpatient in June was 1.1 Continue IVF for now (4) Hypertension: Continue to hold Lisinopril due to DHARA ontinue monitor BMP (5) GERD (gastroesophageal reflux disease): - Continue outpatient PPI therapy (6) Dyslipidemia: Continue outpatient statin therapy Code Status: DNR/DNI DVT Prophylaxis: subQ heparin Admission and Anticipated Discharge Date Admission Date: August 16, 2020 Subjective Pt was seen and examined for follow up of back pain Lying in bed with no distress Pt said that he does not have any pain He said that he feels much better Denies any chest pain, palpitation, dizziness and SOB Review of Systems Review of Systems: All systems reviewed & are unremarkable except as noted in Subjective Physical Exam Physical Exam: General- No acute distress Head- atraumatic Eyes- PERRL, EOMI, ENT- oropharynx clear Neck- supple, no JVD Lungs- clear to auscultation Heart- regular rhythm; no murmur Abdomen- normal bowel sounds, soft, nontender Extremities- no calf tenderness Neuro- alert, oriented x 3; PERRL, EOMI; no facial palsy; no dysarthria Skin- warm & dry Results & Data Results & Data ([facility]) Vital Signs (Past 12 Hours) Vital Signs Temp Pulse Resp BP Pulse Ox 08/17/20 15:48 36.6 C 80 16 157/81 H 97 08/17/20 07:41 36.7 C 65 16 168/86 H 97 (1) GERD (gastroesophageal reflux disease) Esophagitis presence: without esophagitis Qualified Code(s): K21.9 - Gastro- esophageal reflux disease without esophagitis (2) Hypertension Hypertension type: essential hypertension Qualified Code(s): I10 - Essential (primary) hypertension
[2020-08-17] MEDS: ACETAMINOPHEN 500 MG TAB PO SCH (21:06)
[2020-08-18] MEDS: SODIUM CHLORIDE 0.9% 1000ML 1,000 ML IV SCH ×4 (01:55→21:12)
[2020-08-18] MEDS: HEPARIN SOD 5,000 UNIT/0.5 ML VIAL SQ SCH ×3 (06:04→21:07)
[2020-08-18] MEDS: ACETAMINOPHEN 325 MG TAB PO PRN ×2 (06:04→21:08)
[2020-08-18 06:08] LABS: Basophils # (auto) 0.01 K/uL (0-0.2); Basophils % (auto) 0.1 %; Eosinophils # (auto) 0.02 K/uL (0-0.5); Eosinophils % (auto) 0.2 %; Hemoglobin 11.6 g/dL (14.0-18.0); Immature Granulocytes # (auto) 0.03 K/uL (0.00-0.02); Immature Granulocytes % (auto) 0.3 %; Lymphocytes # (auto) 1.03 K/uL (1.2-3.4); Mean Corpuscular Hemoglobin 35.6 pg (25-34); Mean Corpuscular Hgb Conc 35.2 g/dL (32-36); Mean Corpuscular Volume 101.2 fL (80-100); Mean Platelet Volume 10.5 fL (7.4-10.4); Monocytes # (auto) 0.88 K/uL (0.11-0.59); Monocytes % (auto) 8.6 %; Neutrophils % (auto) 80.8 %; Platelet Count 194 K/uL (130-400); RDW Coefficient of Variation 15.3 % (11.5-14.5); RDW Standard Deviation 55.6 fL (36.4-46.3); Red Blood Count 3.26 M/uL (4.7-6.1); White Blood Count 10.27 K/uL (4.8-10.8)
[2020-08-18 06:42] LABS: BUN Creatinine Ratio 7.4 (10-20); Calcium 7.6 mg/dl (8.5-10.1); Creatinine Clr Calc Pharmacy 17.5 ml/min; Est GFR (African American) 18.5 ml/min; Potassium 3.7 mmol/L (3.5-5.1)
--- NOTE | 2020-08-18 07:42 | Nephrology Consultation ---
Date of Consultation August 18, 2020 Assessment & Plan (1) DHARA (acute kidney injury): Nonoliguric stage III acute kidney injury, rapidly progressive. Baseline creatinine june 2020 1.1; . Presented with creatinine 1.8 with rapid increase to 3.5 within 48 hours of admission. PResumptive pyelitis/pyelonephritis with new right-sided hydronephrosis and right-sided duodenal inflammation adjacent to right kidney. Chemistries and volume status generally acceptable -No indication for emergent dialysis -Daily basic metabolic panel Continue to hold lisinopril and to avoid nephrotoxins -Repeat urinalysis with microscopy ordered -Will check CK and sed rate, repeat liver panel in the morning with other labs for completeness Present on Admission?: Yes (2) Hypertension: acceptable control currently Present on Admission?: Yes (3) Bilateral hydronephrosis: By report the right hydronephrosis is new and left is chronic. No de finite source of obstruction seen by radiology or urology. Note that presented with right-sided back pain and has a right-sided indeterminate duodenal inflammation on imaging. Significant urothelial thickening in the renal collecting systems and ureters bilaterally with extensive perinephric edema/fat stranding >> presumptive pyelitis; cultures inconclusive or unavailable; afebrile and hemodynamically stable; leukocytosis improving with antibiotics and supportive care If clinically worsening may need tertiary care for nephrostomy tubes per urology Present on Admission?: Yes (4) Edema of small intestine: Right-sided focal but nonspecific duodenal inflammation on CT imaging adjacent to right kidney. Monitor as potential source of presenting symptoms of N and central then right-sided back pain Present on Admission?: Yes History of Present Illness Reason for Consultation: Acute renal failure Requesting Physician: Dr. Heart Attending Physician: Blake Heart MD History of Present Illness 74-year-old gentleman whom I am asked to evaluate for acute renal failure was admitted August 16 with concern for Pyelonephritis after he presented with nausea and right-sided intractable back pain. Other medical history includes hypertension, GERD, hyperlipidemia, 1999 craniotomy in the wake of which he had a pulmonary embolus, active tobacco and alcohol use daily as below, reported chronic L hydronephrosis. Not anticoagulated as an outpatient prior to admission. His creatinine on admission was 1.8 and has steadily trended up since admission to 3.5 today. 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 Urology has followed since admission and recommend transfer for for ostomy tubes if likely worsening such as with fever or continued renal dysfunction. We have little renal data available on this patient in our system but per report his outpatient creatinine in June was 1.1; baseline reported 1.1- 1.3. Urine cultures from admission were negative, though there were high counts of 3 organisms and recollection recommended. Blood cultures were not obtained. He is currently receiving ceftriaxone and tramadol as well as normal saline at 100 mL hourly. He made 1.8 L urine last evening. His lisinopril has been on hold since admission; he has not received any nonsteroidals or other nephrotoxins. Was not on any antibiotics prior to admission and does not use NSAIDs as outpatient part from low-dose aspirin Allergies Allergy/AdvReac Type Severity Reaction Status Date / Time alprazolam Allergy Fainting Unverified 08/16/20 08:49 codeine Allergy Diarrhea/ Unverified 08/16/20 08:49 Vomiting rosuvastatin Allergy Diarrhea Unverified 08/16/20 08:49 warfarin Allergy Confusion Unverified 08/16/20 08:49 Home Medications Medication Instructions Recorded Confirmed Type ascorbic acid (vitamin C) 500 mg PO DAILY 08/16/20 08/16/20 History aspirin [Aspir-81] 81 mg PO DAILY 08/16/20 08/16/20 History atorvastatin 40 mg PO DAILY 08/16/20 08/16/20 History lansoprazole 30 mg PO DAILY 08/16/20 08/16/20 History lisinopril 40 mg PO DAILY 08/16/20 08/16/20 History lutein 20 mg PO DAILY 08/16/20 08/16/20 History xd-nib-GJ-Dc-Cm-hwrnhge-lutein 1 tab PO DAILY 08/16/20 08/16/20 History [Centrum] vitamin B complex [B Complex] 1 tab PO DAILY 08/16/20 08/16/20 History vitamin E 400 unit PO DAILY 08/16/20 08/16/20 History Patient History Medical History Dyslipidemia GERD (gastroesophageal reflux disease) History of meningioma History of pulmonary embolism after craniotomy in 1998 Hydronephrosis of left kidney Chronic since surgery in 2010 due to "kink" in ureter from procedure Hypertension 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 w/ ileal conduit/ostomy at [place] in 2010 Surgical History H/O partial nephrectomy Right 2011 - due to benign tumor History of craniotomy History of hemorrhoidectomy History of ileal conduit Status post radical cystoprostatectomy Social History Smoking Status: Current every day smoker Tobacco Type: Cigarettes Cigarettes Per Day: 10; Do You Dip or Chew Tobacco: No; Hx Alcohol Use: Yes Alcohol type: hard liquor Alcohol Intake Frequency Comment: 4 drinks/day Hx Substance Use: No Preferred Language: Marshallese Communication Ability: Effective Web Designer Required: No Beliefs That Will Affect Care: None marital status: Current Living Situation: Spouse Feels Safe at Home: Yes Assistive Devices: None Review of Systems Review of Systems: All systems reviewed & are unremarkable except as noted in HPI & below Respiratory: no cough, no dyspnea and no dyspnea on exertion Genitourinary: no dysuria, no difficulty urinating and no hematuria Musculoskeletal: Denies current back pain Physical Exam Constitutional: well developed and well nourished; no acute distress On room air, ambulatory without assist Eyes: EOM intact bilaterally ENMT: Ears: no external ear abnormality Nose: no external nose abnormality Mouth: + dry oral mucous membranes Neck: no nuchal rigidity Respiratory: normal respiratory effort Auscultation: lungs clear to auscultation bilaterally and + diminished lung sounds Cardiovascular: RRR, no murmur, no edema Gastrointestinal (Abdomen): Inspection/Auscultation: normal bowel sounds Percussion/Palpation: abdomen soft; abdomen nontender and no guarding Musculoskeletal: Extremities: strength 5/5 throughout Skin: no rashes, warm and dry Neurologic: doherty, fluent speech, no tremor Psychiatric: A+Ox3, euthymic affect Results & Data ([facility]) Vital Signs (Past 12 Hours) Vital Signs Temp Pulse Resp BP Pulse Ox 08/17/20 23:06 36.9 C 76 17 143/66 H 95 Laboratory Results 08/18/20 05:47 08/18/20 05:47 Admission urinalysis: Cloudy yellow urine with a pH of 8.5 and specific gravity 1010, 3+ blood positive nitrites 10-30 white cells and red cells per high- powered field with more than 30 epithelial cells per high-powered field, 4+ bacteria with 5-10 hyaline casts per high-powered field; urine nitrites positive and other indices negative Diagnostic Findings CT abd/pelvis FINDINGS: Mild dependent changes seen at the lung bases. No pneumoperitoneum. No pneumatosis. No suspicious lytic or blastic osseous lesions. There is a 1.5 cm hypodense lesion within the posterior segment of the right hepatic lobe. This is incompletely characterized on this noncontrast study but favors a cyst. The unenhanced gallbladder, spleen, and pancreas are unremarkable. Bilateral adrenal gland nodules with the largest on the right measuring 1.3 cm. These are consistent with benign adenomas. Calcified plaque within the normal caliber abdominal aorta. No retroperitoneal lymphadenopathy. Postoperative changes consistent with prior cystoprostatectomy and right lower quadrant ileal loop diversion. There is extensive bilateral perinephric edema/fat stranding with bilateral urothelial thickening within the renal collecting systems and ureters. There is also right-sided periureteral fat stranding. There is mild right and moderate left hydronephrosis. No renal or ureteral stones identified. The hydronephrosis extends to the anastomosis with the ileal loop. Small focus of fat and calcification within the lateral aspect of the right kidney. This favors old postoperative change. There is greater than expected inflammatory change anterior to the right kidney and located between the second portion of the duodenum and ascending colon best seen on image 146. This is indeterminate. No definite bowel wall thickening. However, a focal duodenitis/peptic ulcer disease or less likely diverticulitis/colitis would be considered in the differential diagnosis. This could relate to the right renal abnormality. However, this is more anterior than expected to suggest a right renal etiology. Diastases with a midline abdominal wall hernia containing a few loops of large and small bowel. No dilated loops of bowel to suggest an obstruction. The visualized appendix is unremarkable. Overall, there are suboptimal evaluation for bowel pathology due to the lack of intravenous and oral contrast. IMPRESSION: 1. Postoperative changes consistent with prior cystoprostatectomy and right lower quadrant ileal loop diversion. 2. Mild right and moderate left hydronephrosis to the level of the ileal anastomosis. No renal or ureteral stones identified. 3. Bilateral perinephric fat stranding with bilateral urothelial thickening likely representing a bilateral pyelitis/pyelonephritis. 4. A focal area of fat stranding/edema within the right upper quadrant located between the second portion of the duodenum and adjacent ascending colon. This is anterior to the right kidney. This is indeterminate. There is no definite bowel wall thickening. However, a focal duodenitis/peptic ulcer disease or less likely an adjacent diverticuli/colitis would be considered in the differential diagnosis. Inflammatory change secondary to the adjacent right renal abnormality is considered less likely but not entirely excluded. 5. Additional findings as described above. (1) Hypertension Hypertension type: essential hypertension Qualified Code(s): I10 - Essential (primary) hypertension
[2020-08-18] MEDS: cefTRIAXone SODIUM 2,000 MG in DEXTROSE 5% 50 ML IV SCH (09:03)
[2020-08-18] MEDS: ASPIRIN 81 MG ECTAB PO SCH (09:04)
[2020-08-18] MEDS: PANTOprazole 40 MG TAB PO SCH (09:04)
[2020-08-18] MEDS: ATORVASTATIN 40 MG TAB PO SCH (09:05)
--- NOTE | 2020-08-18 10:22 | Urology Progress Note ---
Date of Service August 18, 2020 Assessment & Plan (1) Leiomyosarcoma: (2) Bilateral hydronephrosis: 74-year-old gentleman with a history of leiomyosarcoma of the prostate status post cystoprostatectomy with ileal conduit diversion around 10 years ago [facility] Subsequent right partial nephrectomy for concerning masspathology was benign He has been modest hydro on the right and slightly more severe on the left with an atrophic left kidney We do not have the benefit of old imaging as he has had the majority of his care at other institutions He reports that he has had similar findings in the past and considered intervention for the hydronephrosis on the left but opted against it given his stable overall condition His baseline creatinine is between 1.1 and 1.3 Currently his creatinine is 3.5 He had a consultation this morning from nephrologyresults pending At this stage I am uncertain if he truly has any obstruction or if his creatinine rise is more reflective of his acute infection - - and now his clinical improvement may be preceding his objective resolution of DHARA If his numbers continue to go up despite his clinical improvement, I would likely recommend reimaging and if hydronephrosis worse, referral for percutaneous nephrostomy Unfortunately, I do not believe it would be feasible to perform a retrograde stent placement through his ileal conduit His conduit is also patent I do not believe there is any role for placement of a catheter into the conduit right now as his conduit was not distended on imaging nor strictured clinically Admission and Anticipated Discharge Date Admission Date: August 16, 2020 Subjective Subjectively denies any major complaints He is ambulatory He does not have significant pain He has been afebrile and his vital signs stable He has had decent urine outputclear Physical Exam Constitutional: well developed and well nourished; no acute distress and not ill appearing Respiratory: no respiratory distress Cardiovascular: Rate/Rhythm: regular rate; not tachycardic Gastrointestinal (Abdomen): Midline hernia Right-sided stomahealthy, patent no stricturing, no inflammation, well adhered device Clear urine output No right or left CVA tenderness to deep palpation Skin: no rashes, warm and dry Results & Data ([facility]) Vital Signs (Past 12 Hours) Vital Signs Temp Pulse Resp BP Pulse Ox 08/18/20 08:17 37.2 C 75 18 156/83 H 96 08/17/20 23:06 36.9 C 76 17 143/66 H 95 PG Care Time/CCT Total # of Minutes Spent Total Time Spent with Patient: Total time spent is greater than 50% in coordination of care (as documented) at patient's floor/unit and/or counseling patient: Coding Level of Care Code 85662 Subseq Hosp Care Lvl 3 Diagnoses Leiomyosarcoma C49.9 Bilateral hydronephrosis N13.30
--- NOTE | 2020-08-18 18:59 | Hospitalist Progress Note ---
Date of Service August 18, 2020 Assessment & Plan (1) Pyelonephritis, acute: Present on admission with right sided back pain associated with nausea Abd/pelvis showed bilateral perinephric fat stranding with bilateral urothelial thickening likely representing a bilateral pyelitis/pyelonephritis. Received IV Zosyn in the ED Currently on IV Rocephin daily, will continue for now Urine cx showed multiple organisms (Mostly contamination) (2) Bilateral hydronephrosis: CT abd/pelvis showed mild right and moderate left hydronephrosis to the level of the ileal anastomosis. Urology on board recommended continue supportive care and antibiotic therapy If he becomes febrile, or acutely declines, would recommend transferring to tertiary care for percutaneous nephrostomy tube placement as per Urology (3) DHARA (acute kidney injury): Creatinine worsening from 3.3 to 3.5 today Creatinine outpatient in June was 1.1 Continue IVF for now if creatinine continue to increase, urology recommended to repeat imaging and if hydronephrosis worse, referral for percutaneous nephrostomy Continue monitor BMP Nephrology on board (4) Hypertension: Continue to hold Lisinopril due to DHARA Continue monitor BMP (5) GERD (gastroesophageal reflux disease): - Continue outpatient PPI therapy (6) Dyslipidemia: Continue outpatient statin therapy Code Status: DNR/DNI DVT Prophylaxis: subQ heparin Admission and Anticipated Discharge Date Admission Date: August 16, 2020 Subjective Pt was seen and examined for follow of back pain Lying in bed with no distress Pt said that he is feeling much better he has been walking around He has good urine output Denies any chest pain, palpitation, dizziness and SOB Review of Systems Review of Systems: All systems reviewed & are unremarkable except as noted in Subjective Physical Exam Physical Exam: General- No acute distress Head- atraumatic Eyes- PERRL, EOMI, ENT- oropharynx clear Neck- supple, no JVD Lungs- clear to auscultation Heart- regular rhythm; no murmur Abdomen- normal bowel sounds, soft, nontender Extremities- no calf tenderness Neuro- alert, oriented x 3; PERRL, EOMI; no facial palsy; no dysarthria Skin- warm & dry Results & Data Results & Data ([facility]) Vital Signs (Past 12 Hours) Vital Signs Temp Pulse Resp BP Pulse Ox 08/18/20 15:13 37.3 C 64 18 144/83 H 97 08/18/20 08:17 37.2 C 75 18 156/83 H 96 (1) GERD (gastroesophageal reflux disease) Esophagitis presence: without esophagitis Qualified Code(s): K21.9 - Gastro- esophageal reflux disease without esophagitis (2) Hypertension Hypertension type: essential hypertension Qualified Code(s): I10 - Essential (primary) hypertension
[2020-08-18] MEDS: ACETAMINOPHEN 500 MG TAB PO SCH (21:39)
[2020-08-19 01:45] LABS: Appearance Urine Clear (Clear); Bacteria Urine Automated Negative (Negative); Bilirubin Urine Negative (Negative); Blood Urine 2+ (Negative); Color Urine Yellow; Epithelial Cell Urine Auto >30 /lpf (0-5); Glucose Urine UA Negative (Negative); Ketones Urine Trace (Negative); Leukocyte Esterase Urine Trace (Negative); Nitrite Urine Negative (Negative); Protein Urine Trace (Negative); Specific Gravity Urine 1.013 (1.000-1.030); Urobilinogen Urine Negative (Negative); pH Urine 6.5 (4.5-7.5)
[2020-08-19] MEDS: HEPARIN SOD 5,000 UNIT/0.5 ML VIAL SQ SCH ×3 (05:53→21:20)
[2020-08-19] MEDS: SODIUM CHLORIDE 0.9% 1000ML 1,000 ML IV SCH (05:53)
[2020-08-19 07:31] LABS: Albumin Level 2.3 gm/dl (3.4-5.0); BUN Creatinine Ratio 15.1 (10-20); Bilirubin Direct 0.1 mg/dl (0-0.2); Bilirubin,Total 0.4 mg/dl (0.2-1); Calcium 7.9 mg/dl (8.5-10.1); Creatinine Clr Calc Pharmacy 60.5 ml/min; Est GFR (African American) 82.9 ml/min; Est GFR (Non-African American) 71.6 ml/min; Potassium 3.7 mmol/L (3.5-5.1); Total Protein 5.8 gm/dl (6.4-8.2)
[2020-08-19] MEDS: cefTRIAXone SODIUM 2,000 MG in DEXTROSE 5% 50 ML IV SCH (08:06)
[2020-08-19] MEDS: ASPIRIN 81 MG ECTAB PO SCH (08:07)
[2020-08-19] MEDS: PANTOprazole 40 MG TAB PO SCH (08:07)
[2020-08-19] MEDS: ATORVASTATIN 40 MG TAB PO SCH (08:07)
--- NOTE | 2020-08-19 10:24 | Urology Progress Note ---
Date of Service August 19, 2020 Assessment & Plan (1) Leiomyosarcoma: (2) Bilateral hydronephrosis: (3) Pyelonephritis, acute: Bilateral hydronephrosis; prior radical cystoprostatectomy for leiomyosarcoma of the prostate Fortunately creatinine has improved substantially Today's value was 1.0 after reaching 3.5 yesterday He has had good urine output It seems that antibiotics for his presumed pyelonephritis have successfully corrected her course Continue supportive care, no interventions planned Admission and Anticipated Discharge Date Admission Date: August 16, 2020 Subjective Reports that his substantial change last evening He had some abdominal distention and bloating throughout the day and then had a sudden relief of those symptoms around 5 PM last night He reports that he is felt much better and has had a substantial increase in his urine output since that time No fevers, no chills, no rigors Physical Exam Physical Exam: Midline hernia Stoma healthy, productive, pink No edema No respiratory distress comfortable appearing Results & Data ([facility]) Vital Signs (Past 12 Hours) Vital Signs Temp Pulse Resp BP Pulse Ox 08/19/20 08:00 36.7 C 60 16 124/76 96 08/18/20 22:37 37.0 C 67 17 143/73 H 96 PG Care Time/CCT Total # of Minutes Spent Total Time Spent with Patient: Total time spent is greater than 50% in coordination of care (as documented) at patient's floor/unit and/or counseling patient: Coding Level of Care Code 75033 Subseq Hosp Care Lvl 3 Diagnoses Leiomyosarcoma C49.9 Bilateral hydronephrosis N13.30 Pyelonephritis, acute N10
--- NOTE | 2020-08-19 18:08 | Nephrology Progress Note ---
Date of Service August 19, 2020 Assessment & Plan (1) DHARA (acute kidney injury): Now resolved nonoliguric stage III acute kidney injury, rapidly progressive. Baseline creatinine june 2020 1.1; . Presented with creatinine 1.8 with rapid increase to 3.5 within 48 hours of admission, now resolved. PResumptive pyelitis/pyelonephritis with new right-sided hydronephrosis and right-sided duodenal inflammation adjacent to right kidney. Chemistries and volume status generally acceptable; CK wnl. -No indication for emergent dialysis -Daily basic metabolic panel if bmp ok in am resume lisinopril >>>recommend he have copy of CT report sent to [place] to evaluation as well as d/c summary incase they want to see him sooner re new R hydronephrosis w/ indeterminate duodenal inflammation on imaging (2) Hypertension: acceptable control currently (3) Bilateral hydronephrosis: By report the right hydronephrosis is new and left is chronic. No definite source of obstruction seen by radiology or urology. Note that presented with right-sided back pain and has a right-sided indeterminate duodenal inflammation on imaging. Significant urothelial thickening in the renal collecting systems and ureters bilaterally with extensive perinephric edema/fat stranding >> presumptive pyelitis; cultures inconclusive or unavailable; afebrile and hemodynamically stable; leukocytosis improving with antibiotics and supportive care If clinically worsening may need tertiary care for nephrostomy tubes per urology but at this point this is unlikely (4) Edema of small intestine: Right-sided focal but nonspecific duodenal inflammation on CT imaging adjacent to right kidney. Monitor as potential source of presenting symptoms of N and central then right-sided back pain> these sx have resolved now; ? if he passed a stone Admission and Anticipated Discharge Date Admission Date: August 16, 2020 Subjective seen on rounds at 1600; no interval events; had some abd distension and this has resolved; creatinine normalized; ambulating; taking po Review of Systems Review of Systems: All systems reviewed & are unremarkable except as noted in Subjective Physical Exam Constitutional: well developed and well nourished; no acute distress Eyes: EOM intact bilaterally ENMT: Ears: no external ear abnormality Nose: no external nose abnormality Mouth: + dry oral mucous membranes Neck: no nuchal rigidity Respiratory: normal respiratory effort Auscultation: lungs clear to auscultation bilaterally and + diminished lung sounds Cardiovascular: RRR, no murmur, no edema Gastrointestinal (Abdomen): Inspection/Auscultation: normal bowel sounds Percussion/Palpation: abdomen soft; abdomen nontender and no guarding Musculoskeletal: Extremities: strength 5/5 throughout Skin: no rashes, warm and dry Psychiatric: A+Ox3, euthymic affect Results & Data ([facility]) Vital Signs (Past 12 Hours) Vital Signs Temp Pulse Resp BP Pulse Ox 08/19/20 17:47 36.7 C 75 16 154/82 H 96 08/19/20 08:00 36.7 C 80 18 124/76 96 Laboratory Results 08/18/20 05:47 08/19/20 06:38 (1) Hypertension Hypertension type: essential hypertension Qualified Code(s): I10 - Essential (primary) hypertension
--- NOTE | 2020-08-19 18:59 | Hospitalist Progress Note ---
Date of Service August 19, 2020 Assessment & Plan (1) Pyelonephritis, acute: Present on admission with right sided back pain associated with nausea Abd/pelvis showed bilateral perinephric fat stranding with bilateral urothelial thickening likely representing a bilateral pyelitis/pyelonephritis. Received IV Zosyn in the ED Currently on IV Rocephin daily, will continue for now Urine cx showed multiple organisms (Mostly contamination) Will follow repeat urine cx (2) Bilateral hydronephrosis: CT abd/pelvis showed mild right and moderate left hydronephrosis to the level of the ileal anastomosis. Urology on board recommended continue supportive care and antibiotic therapy If he becomes febrile, or acutely declines, would recommend transferring to tertiary care for percutaneous nephrostomy tube placement as per Urology (3) DHARA (acute kidney injury): Creatinine worsening from 3.3->3.5-> then improved to 1.02 Creatinine outpatient in June was 1.1 Continue IVF for now if creatinine continue to increase, urology recommended to repeat imaging and if hydronephrosis worse, referral for percutaneous nephrostomy Continue monitor BMP Nephrology on board Clinically improves (4) Hypertension: Continue to hold Lisinopril due to DHARA Continue monitor BMP Will consider to resume Lisinopril in am (5) GERD (gastroesophageal reflux disease): - Continue outpatient PPI therapy (6) Dyslipidemia: Continue outpatient statin therapy Code Status: DNR/DNI DVT Prophylaxis: subQ heparin Admission and Anticipated Discharge Date Admission Date: August 16, 2020 Subjective Pt was seen and examined for follow up of flank pain Lying in bed with no distress with at bedside Pt said that he feels fine and does not have any pain He has been walking in the hallway with no distress Denies any chest pain, palpitation, dizziness and SOB Review of Systems Review of Systems: All systems reviewed & are unremarkable except as noted in Subjective Physical Exam Physical Exam: General- No acute distress Head- atraumatic Eyes- PERRL, EOMI, ENT- oropharynx clear Neck- supple, no JVD Lungs- clear to auscultation Heart- regular rhythm; no murmur Abdomen- normal bowel sounds, soft, nontender Extremities- no calf tenderness Neuro- alert, oriented x 3; PERRL, EOMI; no facial palsy; no dysarthria Skin- warm & dry Results & Data Results & Data ([facility]) Vital Signs (Past 12 Hours) Vital Signs Temp Pulse Resp BP Pulse Ox 08/19/20 17:47 36.7 C 75 16 154/82 H 96 08/19/20 08:00 36.7 C 80 18 124/76 96 (1) GERD (gastroesophageal reflux disease) Esophagitis presence: without esophagitis Qualified Code(s): K21.9 - Gastro- esophageal reflux disease without esophagitis (2) Hypertension Hypertension type: essential hypertension Qualified Code(s): I10 - Essential (primary) hypertension
[2020-08-19] MEDS: ACETAMINOPHEN 500 MG TAB PO SCH (21:19)
[2020-08-20] MEDS: SODIUM CHLORIDE 0.9% 1000ML 1,000 ML IV SCH ×2 (00:25→10:19)
[2020-08-20] MEDS: HEPARIN SOD 5,000 UNIT/0.5 ML VIAL SQ SCH ×2 (05:27→14:58)
[2020-08-20 07:01] LABS: BUN Creatinine Ratio 18.4 (10-20); Calcium 8.3 mg/dl (8.5-10.1); Creatinine Clr Calc Pharmacy 64.3 ml/min; Est GFR (African American) 89.3 ml/min; Potassium 3.7 mmol/L (3.5-5.1)
[2020-08-20] MEDS: cefTRIAXone SODIUM 2,000 MG in DEXTROSE 5% 50 ML IV SCH (08:00)
[2020-08-20] MEDS: PANTOprazole 40 MG TAB PO SCH (08:01)
[2020-08-20] MEDS: ASPIRIN 81 MG ECTAB PO SCH (08:01)
[2020-08-20] MEDS: ATORVASTATIN 40 MG TAB PO SCH (08:01)
--- NOTE | 2020-08-20 09:32 | Urology Progress Note ---
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 - CTAP from 08/17 notable for mild right and moderate left hydronephrosis to the level of the ileal anastomosis, likely refluxing anastomosis with superimposed infection. - He is feeling well this morning, no complaints of pain. - Remains afebrile, VSS. - Labs reviewed, creatinine improved - 0.96 today. - Urine culture from admission with more than three types of organisms present, all high counts. Repeat urine culture pending. - Urostomy intact/patent with good urine output. - Recommend continue supportive care and antibiotic therapy. - Will likely need extended course of oral antibiotics on discharge per primary team. - Patient plans to follow-up with surgeon/urology at [facility] following discharge. - Thank you for allowing us to participate in the acute care of Mr. Snyder. - Please reconsult us with additional questions, concerns or changes in patient status. Admission and Anticipated Discharge Date Admission Date: August 16, 2020 Subjective Patient examined at bedside this AM. Awake, resting in bed on arrival. Overall feeling well. He denies any pain or discomfort at this time. No fevers or chills. Tolerating diet, no nausea or vomiting. Urostomy patent and draining clear yellow urine. Urine output overnight was 600ml. Chart review: Afebrile Wbc 10.27 (08/19) Cr 0.96 Continues on IV Ceftriaxone Review of Systems Constitutional: as per Subjective / HPI Gastrointestinal: as per Subjective / HPI Genitourinary: + as per Subjective / HPI Physical Exam Constitutional: well developed and well nourished; no acute distress Respiratory: normal respiratory effort; no labored breathing and no audible wheezes Gastrointestinal (Abdomen): Percussion/Palpation: abdomen soft; abdomen nontender and no guarding Musculoskeletal: Head/Neck/Chest: normocephalic Skin: no rashes, warm and dry Neurologic: moves all extremities and awake Psychiatric: A+Ox3, euthymic affect Genitourinary: no CVA tenderness Ileal conduit patent and draining with clear yellow urine Results & Data ([facility]) Vital Signs (Past 12 Hours) Vital Signs Temp Pulse Resp BP Pulse Ox 08/20/20 07:19 36.6 C 60 16 130/74 96 08/19/20 22:56 37.1 C 70 16 117/71 94 PG Care Time/CCT Total # of Minutes Spent Total Time Spent with Patient: Total time spent is greater than 50% in coordination of care (as documented) at patient's floor/unit and/or counseling patient: Coding Level of Care Code 38236 Subseq Hosp Care Lvl 2 Diagnoses Leiomyosarcoma C49.9 Bilateral hydronephrosis N13.30 Presence of urostomy Z93.6
--- NOTE | 2020-08-20 14:46 | Discharge Summary ---
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 Pt reports started with a mild aching in his mid-back last evening. By 9 pm when he went to bed, it had become more severe and sharp. It took him ~3 hrs to fall asleep due to pain and associated nausea. Once he did fall asleep, the pain kept waking him up. Around 3 am, the pain move from the middle of his back to the right thoracic region. He rated it as a 6/10 at its worst. He finally came to the ED due to the severity of his symptoms. He denies significant vomiting although he reports that he did try to self-induce vomiting without success. No radiation of the pain. He denies fevers, chills, sweats, CP, SOB, palpitations, or dizziness. He did have a WISE last night but this improved with the Tylenol 1000 mg that pt takes every night for left shoulder pain due to arthritis. Curre ntly, he is feeling better than on arrival with medications for pain and nausea. He reports chronic left hydronephrosis since his surgery in 2010, but denies hx of right hydronephrosis. His last UTI was prior to his surgery in 2010 when he presented with urosepsis. He denies change in urinary output - no decrease/increase in volume, change in color. Denies blood in urine. He follows with [facility] once a year, usually in November and reports no issues at last follow-up including negative "full body scan" monitoring for recurrent disease. Admission Exam Per Admitting Provider Constitutional: WD/WN, vitals as above no acute distress Eyes: + anicteric sclerae Neck: trachea midline Respiratory: no respiratory distress and no labored breathing Auscultation: lungs clear to auscultation bilaterally; no rales, no rhonchi and no wheezes Cardiovascular: regular rate and regular rhythm Heart Sounds: no gallop, no murmur and no cardiac rub Vessels: dorsalis pedis pulses present and radial pulses present; no carotid bruit Extremities: no edema Gastrointestinal: normal bowel sounds; abdomen not distended P ercussion/Palpation: abdomen soft; abdomen nontender No CVA tenderness Head/Neck/Chest: normocephalic, head atraumatic and neck supple Spine: no step off deformity, no thoracic spinal tenderness and no lumbar spinal tenderness Extremities: no cyanosis and no clubbing Skin: no rashes, warm and dry Neurologic: no focal motor deficits Psychiatric: A+Ox3, euthymic affect Principal Diagnosis Bilateral hydronephrosis: DHARA (acute kidney injury): Hypertension: GERD (gastroesophageal reflux disease): Dyslipidemia: Discharge Exam General- No acute distress Head- atraumatic Eyes- PERRL, EOMI, ENT- oropharynx clear Neck- supple, no JVD Lungs- clear to auscultation Heart- regular rhythm; no murmur Abdomen- normal bowel sounds, soft, nontender Extremities- no calf tenderness Neuro- alert, oriented x 3; PERRL, EOMI; no facial palsy; no dysarthria Skin- warm & dry Discharge Data Allergies Allergy/AdvReac Type Severity Reaction Status Date / Time alprazolam Allergy Fainting Unverified 08/16/20 08:49 codeine Allergy Diarrhea/ Unverified 08/16/20 08:49 Vomiting rosuvastatin Allergy Diarrhea Unverified 08/16/20 08:49 warfarin Allergy Confusion Unverified 08/16/20 08:49 Consultations 08/16/20 11:22 ED Decision to Admit Stat 08/17/20 10:07 Consult Urology Routine 08/18/20 07:33 Consult Nephrology Routine 08/20/20 13:56 Burn CD for patient Routine Ordered Studies 08/16/20 09:59 CT abd pelvis wo con Stat ABDOMEN AND PELVIS CT WITHOUT CONTRAST CT DOSE: 308.09 mGy.cm HISTORY: Right upper quadrant pain. Right-sided back pain. TECHNIQUE: Multiaxial CT images of the abdomen and pelvis were performed without contrast. A dose lowering technique was utilized adhering to the principles of ALARA. COMPARISON STUDY: None. FINDINGS: Mild dependent changes seen at the lung bases. No pneumoperitoneum. No pneumatosis. No suspicious lytic or blastic osseous lesions. There is a 1.5 cm hypodense lesion within the posterior segment of the right hepatic lobe. This is incompletely characterized on this noncontrast study but favors a cyst. The unenhanced gallbladder, spleen, and pancreas are unremarkable. Bilateral adrenal gland nodules with the largest on the right measuring 1.3 cm. These are consistent with benign adenomas. Calcified plaque within the normal caliber abdominal aorta. No retroperitoneal lymphadenopathy. Postoperative changes consistent with prior cystoprostatectomy and right lower quadrant ileal loop diversion. There is extensive bilateral perinephric edema/fat stranding with bilateral urothelial thickening within the renal collecting systems and ureters. There is also right-sided periureteral fat stranding. There is mild right and mo derate left hydronephrosis. No renal or ureteral stones identified. The hydronephrosis extends to the anastomosis with the ileal loop. Small focus of fat and calcification within the lateral aspect of the right kidney. This favors old postoperative change. There is greater than expected inflammatory change anterior to the right kidney and located between the second portion of the duodenum and ascending colon best seen on image 146. This is indeterminate. No definite bowel wall thickening. However, a focal duodenitis/peptic ulcer disease or less likely diverticulitis/colitis would be considered in the differential diagnosis. This could relate to the right renal abnormality. However, this is more anterior than expected to suggest a right renal etiology. Diastases with a midline abdominal wall hernia containing a few loops of large and small bowel. No dilated loops of bowel to suggest an obstruction. The visualized appendix is unremarkable. Overall, there are suboptimal evaluation for bowel pathology due to the lack of intravenous and oral contrast. IMPRESSION: 1. Postoperative changes consistent with prior cystoprostatectomy and right lower quadrant ileal loop diversion. 2. Mild right and moderate left hydronephrosis to the level of the ileal anastomosis. No renal or ureteral stones identified. 3. Bilateral perinephric fat stranding with bilateral urothelial thickening likely representing a bilateral pyelitis/pyelonephritis. 4. A focal area of fat stranding/edema within the right upper quadrant located between the second portion of the duodenum and adjacent ascending colon. This is anterior to the right kidney. This is indeterminate. There is no definite bowel wall thickening. However, a focal duodenitis/peptic ulcer disease or less likely an adjacent diverticuli/colitis would be considered in the differential diagnosis. Inflammatory change secondary to the adjacent right renal abnormality is considered less likely but not entirely excluded. 5. Additional findings as described above. ACT 112: Negative or not required by law. Electronically signed by: Vazquez Yu M.D. 08/16/2020 10:45 AM Dictated: 08/16/20 1028Transcribed: 08/16/20 1028 Hospital Course (1) Pyelonephritis, acute: Present on admission with right sided back pain associated with nausea Abd/pelvis showed bilateral perinephric fat stranding with bilateral urothelial thickening likely representing a bilateral pyelitis/pyelonephritis. Received IV Zosyn in the ED Currently on IV Rocephin daily, will continue for now Urine cx showed multiple organisms (Mostly contamination) Repeat urine cx showed no growth Will complete the course of the antibiotic since pt improves significantly while on abx (2) Bilateral hydronephrosis: CT abd/pelvis showed mild right and moderate left hydronephrosis to the level of the ileal anastomosis. Urology on board recommended continue supportive care and antibiotic therapy If he becomes febrile, or acutely declines, would recommend transferring to tertiary care for percutaneous nephrostomy tube placement as per Urology Follow-up with surgeon/urology at [facility] following discharge. CD burned for patient take to his surgeon (3) DHARA (acute kidney injury): Creatinine worsening from 3.3->3.5-> then improved to 1.02 Creatinine outpatient in June was 1.1 Continue IVF for now if creatinine continue to increase, urology recommended to repeat imaging and if hydronephrosis worse, referral for percutaneous nephrostomy Continue monitor BMP Nephrology on board Check BMP in 1 week Resolved (4) Hypertension: Continue to hold Lisinopril due to DHARA Continue monitor BMP Resume Lisinopril on discharge (5) GERD (gastroesophageal reflux disease): - Continue outpatient PPI therapy (6) Dyslipidemia: Continue outpatient statin therapy Code Status: DNR/DNI DVT Prophylaxis: subQ heparin Total Time Total Time Spent Total Time Spent (In Minutes): 35 minutes Total Time Includes: Examination of the Patient, Discharge Planning, Medication Reconciliation, Communication With Other Providers and Other Discharge Plan Discharge Items Patient Disposition: Home - Self-Care Reason For Visit: PYELONEPHRITIS Discharge Diagnosis: Bilateral hydronephrosis: DHARA (acute kidney injury): Hypertension: GERD (gastroesophageal reflux disease): Dyslipidemia: Activity: Resume your previous activity Non-emergency contact: Primary Care Provider and Urologist Call non-emergency contact if: you have any medication questions Follow-up/Referrals: Lake Bell MD [Primary Care Provider] - (Date & Time 08/27/2020 11:20 AM Provider Lake Bell MD [facility] ) Diet: Heart Healthy Addtl Attending Provider Instructions: Follow up with your primary care provider dr. Bell on 08/27/2020 @ 11:20 AM at the [facility] follow-up with surgeon/urology at [facility] following discharge. (Bring the CD for the CAT scan at your next appointment) Check your BMP in 1 week to monitor your kidney function, then once a month x 3 Follow up with nephrology as needed if lab result is abnormal Complete the course of the antibiotic Seek medical attention if you develop any fever/chills/ or recurrent pain Pending Studies at Discharge: No Stand-Alone Forms: My [facility] [employer], Smoking Cessation Medications and DC Order Prescriptions: Continued atorvastatin 40 mg tablet 40 mg PO DAILY RF: 0 vitamin B complex Tablet Extended Release 1 tab PO DAILY RF: 0 aspirin 81 mg Tablet,Delayed Release (Dr/Ec) 81 mg PO DAILY RF: 0 ascorbic acid (vitamin C) 500 mg Tablet 500 mg PO DAILY RF: 0 lansoprazole 30 mg capsule,delayed release(DR/EC) 30 mg PO DAILY RF: 0 vitamin E 400 unit Tablet 400 unit PO DAILY RF: 0 lisinopril 40 mg tablet 40 mg PO DAILY RF: 0 [id number]-lutein 0.4-162-18 mg Tablet 1 tab PO DAILY RF: 0 lutein 20 mg Tablet 20 mg PO DAILY RF: 0 Discharge Orders: Discharge Order (Routine); Ordered 08/20/20 Ordered By: Blake Diaz/Other Patient Handouts: Kidney Infec Dc Admission Data Admit Date/Time: 08/16/20 12:26 Attending Provider: Blake Heart Admit Provider: Blake Heart Primary Care Provider: Lake Bell Other Providers: Blake Heart ; Maurilio Lauren ; Cris Robbins Other Interventions: Discharge Summary Assessment (RN) Last Done: 08/20/20 14:58
== END 2020-08-20 16:06 | disposition home or self-care (01) | DRG 690 ==
LOC: ED 07:14 → 3N 12:26

== ENCOUNTER 2021-01-25 07:51 | Inpatient (IN) ==
[2021-01-25] MEDS ORDERED: ONDANSETRON INJ 2 MG/ML 2 ML VIAL IV STA (08:23)
[2021-01-25] MEDS ORDERED: MoRPHine SULFATE 4 MG/ML 1 ML CARP\\VIAL IV PRN (08:23)
[2021-01-25] MEDS ORDERED: SODIUM CHLORIDE 0.9% 1000ML 1,000 ML IV STA (08:23)
--- NOTE | 2021-01-25 08:28 | Emergency Department Note ---
Impression & Plan Acute pyelonephritis, Bilateral hydronephrosis, Acute left flank pain ED Provider Note NAME: ADRIAN DURAND AGE: 75 SEX: M : 1945 ARRIVES VIA: Walk-In INFORMANT: Patient, ED PROVIDER(S): Mitul Arizmendi DO CHIEF COMPLAINT: Back pain HPI: The patient is a 75-year-old male who has a history of nephrectomy as well as diverting stoma for urine presented to the emergency department for an evaluation of left leg pain. The patient describes acute onset of left flank pain approximately 5 AM this morning. He has had similar episodes in the past. He states the stoma appears to be draining urine. 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 These were all removed surgically. He also had a partial nephrectomy. The patient has decreased kidney function because of this. He states he did not try any medications at home. He states the pain is moderate and worsens with ambulation. He does complain of weakness in both legs. He has had no fever or vomiting. He denies having any chest pain or difficulty breathing. The patient states he has noticed no cloudy urine or hematuria. The patient presented directly to the emergency department. He is not been seen by a provider prior to coming to the emergency department. ROS: See above HPI for pertinent positives & negatives. A total of 10 systems reviewed and were otherwise negative. PAST MEDICAL HISTORY: See Below PAST SURGICAL HISTORY: See Below FAMILY HISTORY: See Below SOCIAL HISTORY: See Below HOME MEDICATIONS: See Below ALLERGIES: See Below VITALS: See Below PHYSICAL EXAMINATION: GENERAL: The patient is awake and alert. He is somewhat anxious appearing and appears to be uncomfortable. EYES: The conjunctivae are clear. The pupils are round and reactive. EARS, NOSE, MOUTH AND THROAT: The nose is without any evidence of any deformity. NECK: The neck is nontender and supple. RESPIRATORY: Normal respiratory effort is noted there is no evidence of wheezing rhonchi or rales CARDIOVASCULAR: Regular rate and rhythm noted there no murmurs rubs or gallops normal S1 normal S2. GASTROINTESTINAL: The abdomen is soft and mildly distended. The stoma is noted in the suprapubic region with clear yellow urine draining. BACK: There is no midline tenderness to palpation. There was left CVA t enderness to percussion. Range of motion does appear intact. MUSCULOSKELETAL/EXTREMITIES: There is no evidence of gross deformity full range of motion is noted in the hips and shoulders. SKIN: There is no obvious evidence of any rash. There are no petechiae, pallor or cyanosis noted. NEUROLOGIC: Patient is awake alert and oriented x3 strength is symmetric patellar reflexes are 1+ bilaterally MEDICAL DECISION MAKING: The patient is a 75-year-old male who presented to emergency department for an evaluation of flank pain. The patient has a history of similar processes in the past. I discussed the patient's laboratory and radiographic studies with him. He was treated with IV fluids and IV pain medication in the emergency department. He was also treated with IV antibiotics. The patient appears to have stranding and hydronephrosis especially about the left kidney. I do feel this would explain the patient's pain. There could be some obstruction. The patient has an stoma for a bladder ostomy. There could be some stricture causing the patient's symptoms. I discussed this case with the on-call urologist. I also discussed this case with the triage physician at [facility]. The patient may need transfer to a tertiary center for possible nephrostomy tubes. I discussed this with the patient. He was consented but no bed is available. For this reason I discussed his case with the [facility] hospitalist group. They will continue to manage the patient medically until transfer can be provided. I did consent the patient for transfer and I did write transfer orders so when the patient was accepted and had a bed available he could go directly. Triage Nursing notes reviewed. Prior medical records reviewed Vital Signs: reviewed and remarkable for no significant abnormalities Differential diagnosis: Renal colic, UTI, appendicitis, diverticulitis, mesenteric ischemia, aortic pathology, infections, inflammatory bowel disease, PUD, biliary pathology, as well as other pathologies. ER treatment provided: See below Diagnostics interpreted by me: ECG: EKG was obtained in the emergency department. My interpretation is normal sinus rhythm at 74 bpm. Low voltage was noted. There is no acute ST segment abnormalities noted. No previous tracing was available. Cardiac Monitoring: An order was placed for continuous cardiac monitoring. The monitor shows a rate of 97 bpm with sinus rhythm. Laboratory studies: As stated above and show below. Imaging studies: See below Consultation(s): I discussed this case with Dr. Lambert who is on-call for urology. He does recommend transfer given the patient's anatomy and the possibility for ne phrostomy tubes. I discussed this case with Dr. Velazquez who is the triage physician at [facility]. They would accept the patient but they have no bed availability at this time. They recommend that we keep the patient here as an inpatient and transfer when bed becomes available. I discussed this case with Rashmi who is on-call for the [facility] hospitalist group. They will evaluate the patient in the emergency department. ED COURSE: Procedures: none PDMP:reviewed and no issues Critical Care: None Past Med/Surg History Medical History COPD (chronic obstructive pulmonary disease) DDD (degenerative disc disease) GERD (gastroesophageal reflux disease) History of DVT (deep vein thrombosis) RLE 1998 History of meningioma History of pulmonary embolism after craniotomy in 1998 History of seizure following craniotomy 1998; no issues since HLD (hyperlipidemia) HTN (hypertension) Hydronephrosis of left kidney Chronic since surgery in 2010 due to "kink" in ureter from procedure Osteoarthritis Presence of urostomy Surgical History H/O partial nephrectomy Right 2011 - due to benign tumor History of colonoscopy History of craniotomy History of esophagogastroduodenoscopy (EGD) History of hemorrhoidectomy History of ileal conduit History of right cataract surgery Status post radical cystoprostatectomy Family History Other No family history of adverse response to anesthesia Social History Smoking Status: Current every day smoker Tobacco Type: Cigarettes Cigarettes Per Day: 10; Second Hand Exposure: No; Hx Alcohol Use: Yes Alcohol type: hard liquor Alcohol Intake Frequency Comment: 4 drinks/day Hx Substance Use: No Preferred Language: Faroese Communication Ability: Effective 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 Beliefs That Will Affect Care: None marital status: Current Living Situation: Spouse Feels Safe at Home: Yes Assistive Devices: Denture - Upper and Glasses Allergies Allergies Allergy/AdvReac Type Severity Reaction Status Date / Time alprazolam Allergy Mild Fainting Verified 01/25/21 10:29 codeine Allergy Diarrhea/ Verified 01/25/21 10:29 Vomiting rosuvastatin Allergy Diarrhea Verified 01/25/21 10:29 warfarin Allergy Confusion Verified 01/25/21 10:29 Home Meds Home Medications Medication Instructions Recorded Confirmed ascorbic acid (vitamin C) 500 mg 500 mg PO QDL 08/16/20 01/25/21 tablet aspirin 81 mg tablet,delayed 81 mg PO QDL 08/16/20 01/25/21 release atorvastatin 40 mg tablet 40 mg PO QDL 08/16/20 01/25/21 lansoprazole 30 mg capsule,delayed 30 mg PO QDL 08/16/20 01/25/21 release lisinopril 40 mg tablet 40 mg PO PM 08/16/20 01/25/21 lutein 20 mg tablet 20 mg PO QDL 08/16/20 01/25/21 [id number] 0.4 mg-calcium 162 1 tab PO QDL 08/16/20 01/25/21 mg-iron 18 [id number] tablet vitamin B complex 1 tab PO QDL 08/16/20 01/25/21 acetaminophen 500 mg tablet 1,000 mg PO HS 09/20/20 01/25/21 vitamin E 400 unit tablet 45 mg PO QDL 09/20/20 01/25/21 Results & Data (ED) Vital Signs Vital Signs - 24 hr 01/25/21 08:04 01/25/21 08:39 01/25/21 08:40 Temperature 36.0 C L Temperature Source Temporal Artery Scan Pulse Rate 73 77 76 Pulse Rate [Finger] Pulse Rate from SpO2 Sensor 77 76 Respiratory Rate 20 15 19 Respiratory Effort / Characteristics Non-Labored Spontaneous Respiratory Depth Normal Respiratory Pattern Regular Blood Pressure 91/64 L Blood Pressure [Right Arm] Blood Pressure Mean 73 Blood Pressure Mean [Right Arm] Blood Pressure Position [Right Arm] Pulse Oximetry 98 98 99 Oxygen Delivery Method Room Air Sepsis Recent Fever Within 48 Hours No Sepsis New/Unexplained Change in Mental Status No Sepsis Action Taken by Nursing No Action Required 01/25/21 08:50 01/25/21 09:00 01/25/21 09:10 Temperature Temperature Source Pulse Rate 63 77 82 Pulse Rate [Finger] Pulse Rate from SpO2 Sensor 69 77 78 Respiratory Rate 22 21 17 Respiratory Effort / Characteristics Respiratory Depth Respiratory Pattern Blood Pressure Blood Pressure [Right Arm] Blood Pressure Mean Blood Pressure Mean [Right Arm] Blood Pressure Position [Right Arm] Pulse Oximetry 98 96 98 Oxygen Delivery Method Sepsis Recent Fever Within 48 Hours Sepsis New/Unexplained Change in Mental Status Sepsis Action Taken by Nursing 01/25/21 09:20 01/25/21 09:24 01/25/21 09:30 Temperature Temperature Source Pulse Rate 79 85 Pulse Rate [Finger] Pulse Rate from SpO2 Sensor 81 85 Respiratory Rate 20 25 H Respiratory Effort / Characteristics Respiratory Depth Respiratory Pattern Blood Pressure Blood Pressure [Right Arm] Blood Pressure Mean Blood Pressure Mean [Right Arm] Blood Pressure Position [Right Arm] Pulse Oximetry 96 90 Oxygen Delivery Method Room Air Sepsis Recent Fever Within 48 Hours Sepsis New/Unexplained Change in Mental Status Sepsis Action Taken by Nursing 01/25/21 09:40 01/25/21 09:50 01/25/21 10:00 Temperature Temperature Source Pulse Rate 89 91 H 89 Pulse Rate [Finger] Pulse Rate from SpO2 Sensor 89 90 90 Respiratory Rate 23 22 26 H Respiratory Effort / Characteristics Respiratory Depth Respiratory Pattern Blood Pressure Blood Pressure [Right Arm] Blood Pressure Mean Blood Pressure Mean [Right Arm] Blood Pressure Position [Right Arm] Pulse Oximetry 94 95 96 Oxygen Delivery Method Sepsis Recent Fever Within 48 Hours Sepsis New/Unexplained Change in Mental Status Sepsis Action Taken by Nursing 01/25/21 10:12 01/25/21 10:20 01/25/21 10:30 Temperature Temperature Source Pulse Rate 94 H 91 H 91 H Pulse Rate [Finger] Pulse Rate from SpO2 Sensor Respiratory Rate 17 28 H 14 Respiratory Effort / Characteristics Respiratory Depth Respiratory Pattern Blood Pressure Blood Pressure [Right Arm] Blood Pressure Mean Blood Pressure Mean [Right Arm] Blood Pressure Position [Right Arm] Pulse Oximetry Oxygen Delivery Method Sepsis Recent Fever Within 48 Hours Sepsis New/Unexplained Change in Mental Status Sepsis Action Taken by Nursing 01/25/21 10:40 01/25/21 10:50 01/25/21 11:00 Temperature Temperature Source Pulse Rate 92 H 90 87 Pulse Rate [Finger] Pulse Rate from SpO2 Sensor Respiratory Rate 24 19 25 H Respiratory Effort / Characteristics Respiratory Depth Respiratory Pattern Blood Pressure Blood Pressure [Right Arm] Blood Pressure Mean Blood Pressure Mean [Right Arm] Blood Pressure Position [Right Arm] Pulse Oximetry Oxygen Delivery Method Sepsis Recent Fever Within 48 Hours Sepsis New/Unexplained Change in Mental Status Sepsis Action Taken by Nursing 01/25/21 11:41 Temperature Temperature Source Pulse Rate Pulse Rate [Finger] 97 H Pulse Rate from SpO2 Sensor Respiratory Rate 22 Respiratory Effort / Characteristics Non-Labored Spontaneous Respiratory Depth Normal Respiratory Pattern Regular Blood Pressure Blood Pressure [Right Arm] 125/80 Blood Pressure Mean Blood Pressure Mean [Right Arm] 95 Blood Pressure Position [Right Arm] Lying Pulse Oximetry 96 Oxygen Delivery Method Room Air Sepsis Recent Fever Within 48 Hours Sepsis New/Unexplained Change in Mental Status Sepsis Action Taken by Care Home Medications Current Medication List: was personally reviewed by me Laboratory Data Attestation: I reviewed the patient's lab results. Result diagrams: 01/25/21 08:42 01/25/21 08:42 Lab Results 01/25/21 01/25/21 01/25/21 Range/Units 06:14 08:42 08:42 WBC 15.51 H (4.8-10.8) K/uL RBC 3.49 L (4.7-6.1) M/uL Hgb 12.1 L (14.0-18.0) g/dL Hct 36.4 L (42-52) % MCV 104.3 H (80-100) fL MCH 34.7 H (25-34) pg MCHC 33.2 (32-36) g/dL RDW Std Deviation 57.8 H (36.4-46.3) fL RDW Coeff of Jayesh 15.1 H (11.5-14.5) % Plt Count 449 H (130-400) K/uL MPV 9.9 (7.4-10.4) fL Immature Gran % (Auto) 0.3 % Neut % (Auto) 90.1 % Lymph % (Auto) 3.3 % [place] % (Auto) 5.4 % Eos % (Auto) 0.7 % Baso % (Auto) 0.2 % Neut # (Auto) 13.99 H (1.4-6.5) K/uL Lymph # (Auto) 0.51 L (1.2-3.4) K/uL [place] # (Auto) 0.83 H (0.11-0.59) K/uL Eos # (Auto) 0.11 (0-0.5) K/uL Baso # (Auto) 0.03 (0-0.2) K/uL Immature Gran # (Auto) 0.04 H (0.00-0.02) K/uL PT 10.3 (9.0-12.0) Seconds INR 1.0 (0.9-1.1) APTT 23.5 (21.0-31.0) Seconds PTT Ratio 0.9 Sodium 141 (136-145) mmol/L Potassium 4.4 (3.5-5.1) mmol/L Chloride 108 H (98-107) mmol/L Carbon Dioxide 26 (21-32) mmol/L Anion Gap 7.0 (3-11) BUN 21 H (7-18) mg/dl Creatinine 1.20 (0.6-1.4) mg/dl Est Cr Clr Drug Dosing 50.7 ml/min Est GFR ( Amer) 67.7 ml/min Est GFR (Non-Af Amer) 58.4 ml/min BUN/Creatinine Ratio 17.8 (10-20) Glucose 132 H (70-99) mg/dl Calcium 8.9 (8.5-10.1) mg/dl Total Bilirubin 0.4 (0.2-1) mg/dl AST 10 L (15-37) U/L ALT 18 (12-78) U/L Alkaline Phosphatase 86 (45-117) U/L Troponin I < 0.015 (0-0.045) ng/ml Total Protein 6.9 (6.4-8.2) gm/dl Albumin 2.5 L (3.4-5.0) gm/dl Globulin 4.4 H (2.5-4.0) gm/dl Albumin/Globulin Ratio 0.6 L (0.9-2) Lipase 72 L (73-393) U/L Urine Color Urine Appearance (Clear) Urine pH (4.5-7.5) Ur Specific [place] (1.000-1.030) Urine Protein (Negative) Urine Glucose (UA) (Negative) Urine Ketones (Negative) Urine Blood (Negative) Urine Nitrite (Negative) Urine Bilirubin (Negative) Urine Urobilinogen (Negative) Ur Leukocyte Esterase (Negative) Urine WBC (Auto) (0-5) /hpf Urine RBC (Auto) (0-4) /hpf U Hyaline Cast (Auto) (0-5) /lpf U Epithel Cells (Auto) (0-5) /lpf Urine Bacteria (Auto) (Negative) Urine Yeast SARS-CoV-2, RNA, NAAT (NEGATIVE) 01/25/21 01/25/21 Range/Units 10:52 10:52 WBC (4.8-10.8) K/uL RBC (4.7-6.1) M/uL Hgb (14.0-18.0) g/dL Hct (42-52) % MCV (80-100) fL MCH (25-34) pg MCHC (32-36) g/dL RDW Std Deviation (36.4-46.3) fL RDW Coeff of Jayesh (11.5-14.5) % Plt Count (130-400) K/uL MPV (7.4-10.4) fL Immature Gran % (Auto) % Neut % (Auto) % Lymph % (Auto) % [place] % (Auto) % Eos % (Auto) % Baso % (Auto) % Neut # (Auto) (1.4-6.5) K/uL Lymph # (Auto) (1.2-3.4) K/uL [place] # (Auto) (0.11-0.59) K/uL Eos # (Auto) (0-0.5) K/uL Baso # (Auto) (0-0.2) K/uL Immature Gran # (Auto) (0.00-0.02) K/uL PT (9.0-12.0) Seconds INR (0.9-1.1) APTT (21.0-31.0) Seconds PTT Ratio Sodium (136-145) mmol/L Potassium (3.5-5.1) mmol/L Chloride (98-107) mmol/L Carbon Dioxide (21-32) mmol/L Anion Gap (3-11) BUN (7-18) mg/dl Creatinine (0.6-1.4) mg/dl Est Cr Clr Drug Dosing ml/min Est GFR ( Amer) ml/min Est GFR (Non-Af Amer) ml/min BUN/Creatinine Ratio (10-20) Glucose (70-99) mg/dl Calcium (8.5-10.1) mg/dl Total Bilirubin (0.2-1) mg/dl AST (15-37) U/L ALT (12-78) U/L Alkaline Phosphatase (45-117) U/L Troponin I (0-0.045) ng/ml Total Protein (6.4-8.2) gm/dl Albumin (3.4-5.0) gm/dl Globulin (2.5-4.0) gm/dl Albumin/Globulin Ratio (0.9-2) Lipase (73-393) U/L Urine Color Yellow Urine Appearance Turbid A (Clear) Urine pH 7.0 (4.5-7.5) Ur Specific [place] 1.024 (1.000-1.030) Urine Protein 2+ H (Negative) Urine Glucose (UA) Negative (Negative) Urine Ketones Negative (Negative) Urine Blood 1+ H (Negative) Urine Nitrite Positive A (Negative) Urine Bilirubin Negative (Negative) Urine Urobilinogen Negative (Negative) Ur Leukocyte Esterase 3+ H (Negative) Urine WBC (Auto) >30 H (0-5) /hpf Urine RBC (Auto) 0-4 (0-4) /hpf U Hyaline Cast (Auto) 5-10 H (0-5) /lpf U Epithel Cells (Auto) 0-5 (0-5) /lpf Urine Bacteria (Auto) 4+ H (Negative) Urine Yeast Not Reportable SARS-CoV-2, RNA, NAAT NEGATIVE (NEGATIVE) Administered Medications Discontinued Medications Hydromorphone HCl (Hydromorphone Inj 1 Mg/Ml Syringe) 1 mg IV Q15M PRN PRN Reason: Pain Stop: 02/08/21 11:46 Last Admin: 01/25/21 12:21 Dose: 1 mg Documented by: [id number] Sodium Chloride (Nss 1000ml) 1,000 mls @ 999 mls/hr IV .Q1H1M STA Stop: 01/25/21 09:23 Last Infusion: 01/25/21 10:39 Dose: 0 mls/hr Documented by: [id number] Admin: 01/25/21 09:21 Dose: 999 mls/hr Documented by: [id number] Piperacillin Sod/Tazobactam Sod (Zosyn) 4.5 gm in 120 mls @ 240 mls/hr IV NOW ONE Stop: 01/25/21 10:45 Last Infusion: 01/25/21 11:53 Dose: 0 mls/hr Documented by: [id number] Admin: 01/25/21 10:52 Dose: 240 mls/hr Documented by: [id number] Sodium Chloride (Nss 1000ml) 1,000 mls @ 999 mls/hr IV .Q1H1M ONE Stop: 01/25/21 11:17 Last Infusion: 01/25/21 12:14 Dose: 0 mls/hr Documented by: [id number] Admin: 01/25/21 10:53 Dose: 999 mls/hr Documented by: [id number] Ioversol (Optiray 320 100ml) 95 ml IV ONCE ONE Stop: 01/25/21 10:19 Last Admin: 01/25/21 10:07 Dose: 95 ml Documented by: [id number] Miscellaneous Information (Consult Pharmacy) 1 ea N/A NOW STA Stop: 01/25/21 12:42 Last Admin: 01/25/21 14:16 Dose: 1 ea Documented by: [id number] Morphine Sulfate (Morphine Sulfate 4 Mg/Ml 1 Ml Carp\\Vial) 4 mg IV Q15M PRN PRN Reason: Pain Stop: 02/08/21 08:22 Last Admin: 01/25/21 09:21 Dose: 4 mg Documented by: [id number] Ondansetron HCl (Ondansetron Inj 2 Mg/Ml 2 Ml Vial) 4 mg IV NOW STA Stop: 01/25/21 08:24 Last Admin: 01/25/21 09:21 Dose: 4 mg Documented by: [id number] Imaging Data Radiologist's Impression: Abdomen/Pelvis CT 01/25/21 09:05 CT abdomen pelvis wo/w con HISTORY: 75 years-old Male left flank pain . Acute left-sided flank pain with history of urinary tract infection prior cystoprostatectomy with right lower quadrant ileal conduit COMPARISON: CT abdomen and pelvis 08/16/2020 TECHNIQUE: Multiple axial CT images of the abdomen and pelvis were obtained both with and without the use of 94 mL Optiray 320. A dose lowering technique was used consistent with the principals of GREGG. FINDINGS: Coronary artery calcifications. Mild bibasilar bronchial wall thickening with emphysema and atelectasis. No pneumatosis or pneumoperitoneum. Unremarkable spleen with left upper quadrant splenules. The pancreas and left adrenal gland are unremarkable. 1.8 cm right adrenal gland adenoma. There is suggested fundal adenomyomatosis gallbladder. 1.5 cm hypodensity of the posterior right hepatic lobe is suggestive of a probable cyst. Patent portal vein. Numerous cysts of the bilateral kidneys redemonstrated. Partial nephrectomy changes of the interpolar right kidney. Mild right with severe left hydroureteronephrosis, progressively worsened on the left. Delayed left-sided nephrogram with moderate perinephric and periureteral stranding. Left greater than right urothelial thickening and enhancement. There is a 2.4 x 2.1 cm lesion of the medial interpolar left kidney which demonstrates noncontrast Hounsfield unit of 16 and post contrast-enhancement of 49. 3 mm calcification of the inferior pole left kidney. No ureteral calculi identified. Prior cystoprostatectomy with right lower quadrant ileal conduit. There is moderate narrowing of the distal left ureter as seen on image 296 without discrete lesion identified. Atherosclerosis of the aorta. No aneurysm. No adenopathy. No bowel obstruction. Anterior mid abdominal hernia with diastases of 8.5 cm contains mesenteric fat, nonobstructed loops of large and small bowel. The appendix appears noninflamed. Degenerative changes of the spine, pelvis and hips. No acute fracture. IMPRESSION: 1. Postoperative changes of prior cystoprostatectomy with right lower quadrant ileal conduit. 2. Mild right and severe left hydroureteronephrosis has progressively worsened from 08/16/2020. Dilation of the ureters extends to the level of the ileal conduit without obstructing lesion or calculus identified. Findings may be secondary to a stricture. 3. Delayed left-sided nephrogram with urothelial thickening and enhancement. Correlate with urinalysis to exclude infection. 4. 2.4 x 2.1 cm lesion of the medial interpolar left kidney demonstrates apparent enhancement suspicious for a renal cell carcinoma 5. 4 mm calcification of the inferior pole left kidney. 6. Additional findings as above. ACT 112: Negative or not required by law. The above report was generated using voice recognition software. It may contain grammatical, syntax or spelling errors. Electronically signed by: Michael Neely M.D. 01/25/2021 10:37 AM Discharge Plan Visit Data Chief Complaint: Back Injury/Pain Stated Complaint: LOW BACK PAIN ED Provider: Mitul Arizmendi Discharge Problem: Acute pyelonephritis, Bilateral hydronephrosis, Acute left flank pain Patient Disposition: Transfer Acute Care Hospital Discharge Instructions Interventions: ED Discharge Assessment Last Done: 01/25/21 15:08
[2021-01-25 09:01] LABS: Hematocrit (blood only) 36.4 % (42-52); Hemoglobin 12.1 g/dL (14.0-18.0); Mean Corpuscular Hemoglobin 34.7 pg (25-34); Mean Corpuscular Hgb Conc 33.2 g/dL (32-36); Mean Corpuscular Volume 104.3 fL (80-100); Mean Platelet Volume 9.9 fL (7.4-10.4); Platelet Count 449 K/uL (130-400); RDW Coefficient of Variation 15.1 % (11.5-14.5); RDW Standard Deviation 57.8 fL (36.4-46.3); Red Blood Count 3.49 M/uL (4.7-6.1); White Blood Count 15.51 K/uL (4.8-10.8)
[2021-01-25 09:19] LABS: Alanine Aminotransferase 18 U/L (12-78); Albumin Level 2.5 gm/dl (3.4-5.0); Aspartate Aminotransferase 10 U/L (15-37); BUN Creatinine Ratio 17.8 (10-20); Basophils # (auto) 0.03 K/uL (0-0.2); Basophils % (auto) 0.2 %; Blood Urea Nitrogen 21 mg/dl (7-18); Calcium 8.9 mg/dl (8.5-10.1); Carbon Dioxide 26 mmol/L (21-32); Chloride 108 mmol/L (98-107); Creatinine Clr Calc Pharmacy 50.7 ml/min; Eosinophils # (auto) 0.11 K/uL (0-0.5); Eosinophils % (auto) 0.7 %; Est GFR (African American) 67.7 ml/min; Est GFR (Non-African American) 58.4 ml/min; Glucose 132 mg/dl (70-99); Immature Granulocytes # (auto) 0.04 K/uL (0.00-0.02); Immature Granulocytes % (auto) 0.3 %; Lipase 72 U/L (73-393); Lymphocytes # (auto) 0.51 K/uL (1.2-3.4); Lymphocytes % (auto) 3.3 %; Monocytes # (auto) 0.83 K/uL (0.11-0.59); Monocytes % (auto) 5.4 %; Neutrophils # (auto) 13.99 K/uL (1.4-6.5); Neutrophils % (auto) 90.1 %; Potassium 4.4 mmol/L (3.5-5.1); Sodium 141 mmol/L (136-145)
[2021-01-25 09:24] LABS: Albumin Globulin Ratio 0.6 (0.9-2); Alkaline Phosphatase 86 U/L (45-117); Bilirubin,Total 0.4 mg/dl (0.2-1); Globulin 4.4 gm/dl (2.5-4.0); Total Protein 6.9 gm/dl (6.4-8.2); Troponin I < 0.015 ng/ml (0-0.045)
[2021-01-25 09:25] LABS: Partial Thromboplastin Ratio 0.9; Partial Thromboplastin Time 23.5 Seconds (21.0-31.0); Prothrombin Time 10.3 Seconds (9.0-12.0)
[2021-01-25] MEDS ORDERED: PIPERACILLIN/TAZOBACTAM 4.5 GM/120 ML BAG IV ONE (10:16)
[2021-01-25] MEDS ORDERED: PIPERACILL/TAZOBAC CONSULT ACTIVE PRN (10:16)
[2021-01-25] MEDS ORDERED: SODIUM CHLORIDE 0.9% 1000ML 1,000 ML IV ONE (10:17)
[2021-01-25] MEDS ORDERED: OPTIRAY 320 100ml IV ONE (10:18)
--- NOTE | 2021-01-25 10:38 | CT Scan Report ---
CT abdomen pelvis wo/w con HISTORY: 75 years-old Male left flank pain . Acute left-sided flank pain with history of urinary tra ct infection prior cystoprostatectomy with right lower quadrant ileal conduit COMPARISON: CT abdomen and pelvis 08/16/2020 TECHNIQUE: Multiple axial CT images of the abdomen and pelvis were obtained both with and without the use of 94 mL Optiray 320. A dose lowering technique was used consistent with the principals of GREGG . FINDINGS: Coronary artery calcifications. Mild bibasilar bronchial wall thickening with emphysema and atelectas is. No pneumatosis or pneumoperitoneum. Unremarkable spleen with left upper quadrant splenules. The p ancreas and left adrenal gland are unremarkable. 1.8 cm right adrenal gland adenoma. There is suggest ed fundal adenomyomatosis gallbladder. 1.5 cm hypodensity of the posterior right hepatic lobe is sugg estive of a probable cyst. Patent portal vein. Numerous cysts of the bilateral kidneys redemonstrated. Partial nephrectomy changes of the interpolar right kidney. Mild right with severe left hydroureteronephrosis, progressively worsened on the left. Delayed left-sided nephrogram with moderate perinephric and periureteral stranding. Left greater may n right urothelial thickening and enhancement. There is a 2.4 x 2.1 cm lesion of the medial interpola r left kidney which demonstrates noncontrast Hounsfield unit of 16 and post contrast-enhancement of 4 9. 3 mm calcification of the inferior pole left kidney. No ureteral calculi identified. Prior cystopr ostatectomy with right lower quadrant ileal conduit. There is moderate narrowing of the distal left u reter as seen on image 296 without discrete lesion identified. Atherosclerosis of the aorta. No aneur ysm. No adenopathy. No bowel obstruction. Anterior mid abdominal hernia with diastases of 8.5 cm contains mesenteric fat, nonobstructed loops of large and small bowel. The appendix appears noninflamed. Degenerative changes of the spine, pelvis and hips. No acute fracture. IMPRESSION: 1. Postoperative changes of prior cystoprostatectomy with right lower quadrant ileal conduit. 2. Mild right and severe left hydroureteronephrosis has progressively worsened from 08/16/2020. Dilati on of the ureters extends to the level of the ileal conduit without obstructing lesion or calculus id entified. Findings may be secondary to a stricture. 3. Delayed left-sided nephrogram with urothelial thickening and enhancement. Correlate with urinalysi s to exclude infection. 4. 2.4 x 2.1 cm lesion of the medial interpolar left kidney demonstrates apparent enhancement suspici ous for a renal cell carcinoma 5. 4 mm calcification of the inferior pole left kidney. 6. Additional findings as above. ACT 112: Negative or not required by law. The above report was generated using voice recognition software. It may contain grammatical, syntax o r spelling errors. Electronically signed by: Michael Neely M.D. 01/25/2021 10:37 AM
[2021-01-25 11:10] LABS: Appearance Urine Turbid (Clear); Bacteria Urine Automated 4+ (Negative); Bilirubin Urine Negative (Negative); Blood Urine 1+ (Negative); Color Urine Yellow; Epithelial Cell Urine Auto 0-5 /lpf (0-5); Glucose Urine UA Negative (Negative); Ketones Urine Negative (Negative); Leukocyte Esterase Urine 3+ (Negative); Nitrite Urine Positive (Negative); Protein Urine 2+ (Negative); RBC Urine Automated 0-4 /hpf (0-4); Specific Gravity Urine 1.024 (1.000-1.030); Urobilinogen Urine Negative (Negative); WBC Urine Automated >30 /hpf (0-5)
[2021-01-25] MEDS ORDERED: HYDROmorphone INJ 1 MG/ML SYRINGE IV PRN (11:47)
--- NOTE | 2021-01-25 12:37 | History & Physical Report ---
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 Clear yellow urine reported. Today with sweats and chills. In ER patient afebrile, Initially mildly hypertensive with BP 91/64 up to 125/80 after 2 L NSS, P: 73, R: 20, 98% on room air. WBC: 15, Hgb: 12, BUN: 21, Cr: 1.2 (baseline~1.0). UA: + Nitrite, 3+ leuk esterase, >30 WBC, 4+ bacteria. CT ABD/PELVIS:. Postoperative changes of prior cystoprostatectomy with right lower quadrant ileal conduit. 2. Mild right and severe left hydroureteronephrosis has progressively worsened from 08/16/2020. Dilation of the ureters extends to the level of the ileal conduit without obstructing lesion or calculus identified. Findings may be secondary to a stricture. 3. Delayed left-sided nephrogram with urothelial thickening and enhancement. Correlate with urinalysis to exclude infection. 4. 2.4 x 2.1 cm lesion of the medial interpolar left kidney demonstrates apparent enhancement suspicious for a renal cell carcinoma In ER given 2 L NSS, Zosyn, Zofran, 4 mg morphine, 1 mg Dilaudid. ER had contacted urology-Dr. Lambert who feels patient may require nephrostomy tube and recommends patient be transferred. ER contacted to [facility] who accepts in transfer however no beds immediately available. Patient placed on wait list. Dr. Marysol Cruz is accepting physician Admit tele Continue Zosyn Gentle IVF Urine culture, blood cultures pending Clear liquids for now CBC, BMP in am Urology consult ABNORMAL CT SCAN CT ABD/PELVIS:.2.4 x 2.1 cm lesion of the medial interpolar left kidney demonstrates apparent enhancement suspicious for a renal cell carcinoma Will require further follow-up HTN Hold lisinopril for now as initially hypotensive in ER DYSLIPIDEMIA Continue atorvastatin TOBACCO USE Denies nicotine patch Smoking cessation recommended ALCOHOL USE Reports 3 shots hard liquor daily. Denies history alcohol withdrawal Monitor for withdrawal symptoms DVT Prophylaxis SCDs DNR/DNI as per discussion with pt Follows with Dr Bell for routine care Pt was seen and care coordinated with Dr Rivera. 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 Describes pain as constant and nonradiating unable to further describe or identify any aggravating or alleviating factors. This morning felt sweaty then felt chilled. Denies any known fevers. Reports urine in bag appears to be clear yellow. Has not noted any hematuria. Denies abdominal pain. Reports does cough when he smokes. Denies N/V/D/C, WISE, dizziness, syncope, vision changes, neck pain, CP, SOB, orthopnea, palpitations, sore throat, choking, otalgia, rhinorrhea, paresthesias, weakness, extremity weakness, extremity edema, rashes. In ER patient afebrile, Initially mildly hypertensive with BP 91/64 up to 125/80 after 2 L NSS, P: 73, R: 20, 98% on room air. WBC: 15, Hgb: 12, BUN: 21, Cr: 1.2 (baseline~1.0). UA: + Nitrite, 3+ leuk esterase, >30 WBC, 4+ bacteria. CT ABD/PELVIS:. Postoperative changes of prior cystoprostatectomy with right lower quadrant ileal conduit. 2. Mild right and severe left hydroureteronephrosis has progressively worsened from 08/16/2020. Dilation of the ureters extends to the level of the ileal conduit without obstructing lesion or calculus identified. Findings may be secondary to a stricture. 3. Delayed left-sided nephrogram with urothelial thickening and enhancement. Correlate with urinalysis to exclude infection. 4. 2.4 x 2.1 cm lesion of the medial interpolar left kidney demonstrates apparent enhancement suspicious for a renal cell carcinoma In ER given 2 L NSS, Zosyn, Zofran, 4 mg morphine, 1 mg Dilaudid. ER had contacted urology-Dr. Lambert who feels patient may require nephrostomy tube and recommends patient be transferred. ER contacted to [facility] who accepts in transfer however no beds immediately available. Patient placed on wait list. Dr. Marysol Cruz is accepting physician. Allergies Allergy/AdvReac Type Severity Reaction Status Date / Time alprazolam Allergy Mild Fainting Verified 01/25/21 10:29 codeine Allergy Diarrhea/ Verified 01/25/21 10:29 Vomiting rosuvastatin Allergy Diarrhea Verified 01/25/21 10:29 warfarin Allergy Confusion Verified 01/25/21 10:29 Home Medications Medication Instructions Recorded Confirmed Type ascorbic acid (vitamin C) 500 mg 500 mg PO QDL 08/16/20 01/25/21 History tablet aspirin 81 mg tablet,delayed 81 mg PO QDL 08/16/20 01/25/21 History release atorvastatin 40 mg tablet 40 mg PO QDL 08/16/20 01/25/21 History lansoprazole 30 mg capsule,delayed 30 mg PO QDL 08/16/20 01/25/21 History release lisinopril 40 mg tablet 40 mg PO PM 08/16/20 01/25/21 History lutein 20 mg tablet 20 mg PO QDL 08/16/20 01/25/21 History [id number] 0.4 mg-calcium 162 1 tab PO QDL 08/16/20 01/25/21 History mg-iron 18 [id number] tablet vitamin B complex 1 tab PO QDL 08/16/20 01/25/21 History acetaminophen 500 mg tablet 1,000 mg PO HS 09/20/20 01/25/21 History vitamin E 400 unit tablet 45 mg PO QDL 09/20/20 01/25/21 History Past Med/Surg History Medical History COPD (chronic obstructive pulmonary disease) DDD (degenerative disc disease) GERD (gastroesophageal reflux disease) History of DVT (deep vein thrombosis) RLE 1998 History of meningioma History of pulmonary embolism after craniotomy in 1998 History of seizure following craniotomy 1998; no issues since HLD (hyperlipidemia) HTN (hypertension) Hydronephrosis of left kidney Chronic since surgery in 2010 due to "kink" in ureter from procedure Osteoarthritis Presence of urostomy Surgical History H/O partial nephrectomy Right 2011 - due to benign tumor History of colonoscopy History of craniotomy History of esophagogastroduodenoscopy (EGD) History of hemorrhoidectomy History of ileal conduit History of right cataract surgery Status post radical cystoprostatectomy Family History Other No family history of adverse response to anesthesia Social History Smoking Status: Current every day smoker Tobacco Type: Cigarettes Cigarettes Per Day: 10; Second Hand Exposure: No; Hx Alcohol Use: Yes Alcohol type: hard liquor Alcohol Intake Frequency Comment: 4 drinks/day Hx Substance Use: No Preferred Language: Botswanan Communication Ability: Effective 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 Beliefs That Will Affect Care: None marital status: Current Living Situation: Spouse Feels Safe at Home: Yes Assistive Devices: Denture - Upper and Glasses Review of Systems Review of Systems: All systems reviewed & are unremarkable except as noted in HPI & below Physical Exam Physical Exam: General: no acute distress, WDWN Head: normocephalic, atraumatic Eyes: PERRL, EOM's intact, conjunctiva non-injected, anicteric ENT: normal inspection external ears, nose, mucous membranes mildly dry Neck: supple, trachea midline Lungs: clear, no respiratory distress, no wheezing/rhonchi/rales CV: tachycardia, regular rhythm, trace pretibial edema Abd: +healed surgical incision, +ventral hernia, +ostomy with clear yellow urine in bag, soft, +tenderness to palpation left mid abdomen, No CVA tenderness to p ercussion Ext: no cyanosis, no calf tenderness Neuro: A&O x 3, no focal deficits noted, normal affect Skin: warm, dry Results & Data Results & Data ([facility]) Vital Signs (Past 12 Hours) Vital Signs Temp Pulse Pulse Resp BP BP Pulse Ox 01/25/21 11:41 97 H 22 125/80 96 01/25/21 11:00 87 25 H 01/25/21 10:50 90 19 01/25/21 10:40 92 H 24 01/25/21 10:30 91 H 14 01/25/21 10:20 91 H 28 H 01/25/21 10:12 94 H 17 01/25/21 10:00 89 26 H 96 01/25/21 09:50 91 H 22 95 01/25/21 09:40 89 23 94 01/25/21 09:30 85 25 H 90 01/25/21 09:20 79 20 96 01/25/21 09:10 82 17 98 01/25/21 09:00 77 21 96 01/25/21 08:50 63 22 98 01/25/21 08:40 76 19 99 01/25/21 08:39 77 15 98 01/25/21 08:04 36.0 C L 73 20 91/64 L 98 Laboratory Results Short CBC 01/25/21 Range/Units 08:42 WBC 15.51 H (4.8-10.8) K/uL Hgb 12.1 L (14.0-18.0) g/dL Hct 36.4 L (42-52) % Plt Count 449 H (130-400) K/uL BMP 01/25/21 08:42 Sodium 141 Potassium 4.4 Chloride 108 H Carbon Dioxide 26 BUN 21 H Creatinine 1.20 Glucose 132 H Calcium 8.9 Cardiac Enzymes 01/25/21 Range/Units 08:42 Troponin I < 0.015 (0-0.045) ng/ml Liver Function 01/25/21 Range/Units 08:42 Total Bilirubin 0.4 (0.2-1) mg/dl AST 10 L (15-37) U/L ALT 18 (12-78) U/L Alkaline Phosphatase 86 (45-117) U/L Albumin 2.5 L (3.4-5.0) gm/dl Urine 01/25/21 Range/Units 10:52 Urine Color Yellow Urine Appearance Turbid A (Clear) Urine pH 7.0 (4.5-7.5) Ur Specific [place] 1.024 (1.000-1.030) Urine Protein 2+ H (Negative) Urine Glucose (UA) Negative (Negative) Diagnostic Findings Abdomen/Pelvis CT 01/25/21 09:05 CT abdomen pelvis wo/w con HISTORY: 75 years-old Male left flank pain . Acute left-sided flank pain with history of urinary tract infection prior cystoprostatectomy with right lower quadrant ileal conduit COMPARISON: CT abdomen and pelvis 08/16/2020 TECHNIQUE: Multiple axial CT images of the abdomen and pelvis were obtained both with and without the use of 94 mL Optiray 320. A dose lowering technique was used consistent with the principals of GREGG. FINDINGS: Coronary artery calcifications. Mild bibasilar bronchial wall thickening with emphysema and atelectasis. No pneumatosis or pneumoperitoneum. Unremarkable spleen with left upper quadrant splenules. The pancreas and left adrenal gland are unremarkable. 1.8 cm right adrenal gland adenoma. There is suggested fundal adenomyomatosis gallbladder. 1.5 cm hypodensity of the posterior right hepatic lobe is suggestive of a probable cyst. Patent portal vein. Numerous cysts of the bilateral kidneys redemonstrated. Partial nephrectomy changes of the interpolar right kidney. Mild right with severe left hydroureteronephrosis, progressively worsened on the left. Delayed left-sided nephrogram with moderate perinephric and periureteral stranding. Left greater than right urothelial thickening and enhancement. There is a 2.4 x 2.1 cm lesion of the medial interpolar left kidney which demonstrates noncontrast Hounsfield unit of 16 and post contrast-enhancement of 49. 3 mm calcification of the inferior pole left kidney. No ureteral calculi identified. Prior cystoprostatectomy with right lower quadrant ileal conduit. There is moderate narrowing of the distal left ureter as seen on image 296 without discrete lesion identified. Atherosclerosis of the aorta. No aneurysm. No adenopathy. No bowel obstruction. Anterior mid abdominal hernia with diastases of 8.5 cm contains mesenteric fat, nonobstructed loops of large and small bowel. The appendix appears noninflamed. Degenerative changes of the spine, pelvis and hips. No acute fracture. IMPRESSION: 1. Postoperative changes of prior cystoprostatectomy with right lower quadrant ileal conduit. 2. Mild right and severe left hydroureteronephrosis has progressively worsened from 08/16/2020. Dilation of the ureters extends to the level of the ileal conduit without obstructing lesion or calculus identified. Findings may be secondary to a stricture. 3. Delayed left-sided nephrogram with urothelial thickening and enhancement. Correlate with urinalysis to exclude infection. 4. 2.4 x 2.1 cm lesion of the medial interpolar left kidney demonstrates apparent enhancement suspicious for a renal cell carcinoma 5. 4 mm calcification of the inferior pole left kidney. 6. Additional findings as above. ACT 112: Negative or not required by law. The above report was generated using voice recognition software. It may contain grammatical, syntax or spelling errors. Electronically signed by: Michael Neely M.D. 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 Describes it as a steady pain with no radiation, 6-7 over 10 at onset, relieved to 0/10 by pain medication at ER, no exacerbating or relieving factor, associated with sweating and chills, no fever. Patient reports no change in the volume/frequency/color of urinary collection in the urostomy bag. Denies belly pain/chest pain. Admitting CTAP:Mild right and severe left hydroureteronephrosis has progressively worsened from 08/16/2020. Dilation of the ureters extends to the level of the ileal conduit without obstructing lesion or calculus identified. Findings may be secondary to a stricture. Upon admission, urinalysis suggestive of UTI, will get urine culture, will continue with Juan, ER already reached out to urology (Dr. Lambert) showroom consultant who recommends transfer given the patient's anatomy and the possibility of nephrostomy tubes. ER doctor already discussed the case with Dr. Velazquez, the triage physician at [facility], patient accepted pending bed availability. Upon Exam GENERAL: Alert and oriented x3. NAD, on RA. HEENT: No pallor, no icterus. Pupils equal, round and reactive to light. Oral mucosa moist. NECK: No JVD, no neck masses. HEART: S1 and S2 heard. Regular rate and rhythm. No murmur, no gallop. RESPIRATORY SYSTEM: Normal AP diameter. No accessory muscle use. No wheezing, no crackles. Decreased breath sounds bilateral ABDOMEN: Soft, bowel sounds present, nontender, no distention. lower abdomen midline incision - healed scar; Urostomy bag with cloudy urine CENTRAL NERVOUS SYSTEM: Alert and oriented x3. No facial droop. Speech is clear. Obeys simple commands. Moves extremities. EXTREMITIES: trace ble edema, no erythema seen. I have seen and examined the patient and have discussed the case with the provider above. I agree with the assessment and plan as stated.
[2021-01-25] MEDS ORDERED: CONSULT PHARMACY STA (12:41)
[2021-01-25] MEDS ORDERED: ACETAMINOPHEN 325 MG TAB PO PRN (15:09)
[2021-01-25] MEDS ORDERED: ONDANSETRON INJ 2 MG/ML 2 ML VIAL IV PRN (15:09)
[2021-01-25] MEDS ORDERED: HYDROmorphone INJ 0.5 MG/0.5 ML SYR IV PRN (15:09)
[2021-01-25] MEDS ORDERED: POLYETHYLENE (MIRALAX) 17 GM PACK PO PRN (15:09)
[2021-01-25] MEDS ORDERED: SODIUM CHLORIDE 0.9% 1000ML 1,000 ML IV SCH (16:00)
[2021-01-25] MEDS ORDERED: PIPERACILLIN/TAZOBACTAM 3.375 GM in DEXTROSE 5% 100 ML IV SCH (16:00)
--- NOTE | 2021-01-25 16:16 | Urology Consultation ---
Date of Consultation January 25, 2021 Assessment & Plan (1) Pyelonephritis: (2) Bilateral hydronephrosis: His hydronephrosis appears worse than on previous imaging. 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 Although there are interventions which can be done to address the stricture, these would not be done in the acute phase of infection, and would require further work-up before undertaking. This is a 75-year-old male with urinary tract infection and bilateral hydronephrosis, as well as a delayed nephrogram on the left side. Overall I am concerned that this represents an obstructed UTI, which necessitates drainage. In the setting of prior cystectomy with ileal conduit, due to distorted anatomy, stent placement via the conduit has a moderate chance of failure. His chances for stent placement would be even lower due to concern for a ureteroileal anastomotic stricture. In the event of a worsening clinical picture / worsening sepsis, I would recommend bilateral nephrostomy tubes to allow for adequate drainage of his upper urinary tracts, as attempting ureteral stent placement may be unsuccessful and would delay definitive drainage. This would require transfer to an outside facility with interventional radiology capabilities. Recommendations: Continue IV fluid resuscitation Continue antibiotics, can tailor as indicated based on culture Would recommend transfer to facility with interventional radiology for nephrostomy tube placement to maximally drain the upper tracts. History of Present Illness Attending Physician: Willis Rivera MD History of Present Illness This is a 75-year-old male with history of leiomyosarcoma of the prostate (s/p radical cystoprostatectomy with ileal conduit urinary diversion in 2010 at [facility]). He has been seen by urology here in the past for episodes of pyelonephritis, and imaging concerning for stricture at the level of the ureteroileal anastomosis. He presented to the hospital on 01/25/2021 with acute onset of mid back pain. He reports he has had this type of pain in the past, when he had an episode of pyelonephritis. Today he reports having fevers and chills. He describes the pain as right in the middle, not on one side or the other. He denies nausea or vomiting with the pain. He has not noticed any significant change in his urine output. In the emergency department, work-up was notable for a leukocytosis (15.51), and mildly elevated creatinine (1.20 up from prior value of 0.96). Urinalysis was grossly positive with nitrates and 3+ leukocyte esterase, as well as greater than 30 WBC/hpf. CT scan was performed which I independently reviewed. He has bilateral hydronephrosis, left side greater than right side, with significant left-sided perinephric stranding. There is bilateral hydroureter extending down to the level of the conduit, at which point it tapers rapidly. There are some surgical clips within the pelvis, but there does not appear to be obstructing nephrolith. The conduit itself appears decompressed. There is a delayed nephrogram of the left side. His left ureter and kidney appear slightly more dilated, compared to prior scan on 08/16/2020. Allergies Allergy/AdvReac Type Severity Reaction Status Date / Time alprazolam Allergy Mild Fainting Verified 01/25/21 10:29 codeine Allergy Diarrhea/ Verified 01/25/21 10:29 Vomiting rosuvastatin Allergy Diarrhea Verified 01/25/21 10:29 warfarin Allergy Confusion Verified 01/25/21 10:29 Home Medications Medication Instructions Recorded Confirmed Type ascorbic acid (vitamin C) 500 mg 500 mg PO QDL 08/16/20 01/25/21 History tablet aspirin 81 mg tablet,delayed 81 mg PO QDL 08/16/20 01/25/21 History release atorvastatin 40 mg tablet 40 mg PO QDL 08/16/20 01/25/21 History lansoprazole 30 mg capsule,delayed 30 mg PO QDL 08/16/20 01/25/21 History release lisinopril 40 mg tablet 40 mg PO PM 08/16/20 01/25/21 History lutein 20 mg tablet 20 mg PO QDL 08/16/20 01/25/21 History [id number] 0.4 mg-calcium 162 1 tab PO QDL 08/16/20 01/25/21 History mg-iron 18 [id number] tablet vitamin B complex 1 tab PO QDL 08/16/20 01/25/21 History acetaminophen 500 mg tablet 1,000 mg PO HS 09/20/20 01/25/21 History vitamin E 400 unit tablet 45 mg PO QDL 09/20/20 01/25/21 History Patient History Medical History COPD (chronic obstructive pulmonary disease) DDD (degenerative disc disease) GERD (gastroesophageal reflux disease) History of DVT (deep vein thrombosis) RLE 1998 History of meningioma History of pulmonary embolism after craniotomy in 1998 History of seizure following craniotomy 1998; no issues since HLD (hyperlipidemia) HTN (hypertension) Hydronephrosis of left kidney Chronic since surgery in 2010 due to "kink" in ureter from procedure Osteoarthritis Presence of urostomy Surgical History H/O partial nephrectomy Right 2011 - due to benign tumor History of colonoscopy History of craniotomy History of esophagogastroduodenoscopy (EGD) History of hemorrhoidectomy History of ileal conduit History of right cataract surgery Status post radical cystoprostatectomy Family History Other No family history of adverse response to anesthesia Social History Smoking Status: Current every day smoker Tobacco Type: Cigarettes Cigarettes Per Day: 10; Second Hand Exposure: No; Hx Alcohol Use: Yes Alcohol type: hard liquor Alcohol Intake Frequency Comment: 4 drinks/day Hx Substance Use: No Preferred Language: Greek Communication Ability: Effective 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 Beliefs That Will Affect Care: None marital status: Current Living Situation: Spouse Feels Safe at Home: Yes Assistive Devices: Denture - Upper and Glasses Review of Systems Constitutional: + fever and + chills Eyes: no worsening vision Ear, Nose, Mouth, Throat: no tinnitus Respiratory: no cough and no dyspnea Cardiovascular: no chest pain and no palpitations Gastrointestinal: + abdominal pain; no nausea and no vomiting Genitourinary: + as per Subjective / HPI Musculoskeletal: no joint pain and no myalgia Integumentary: no rash and no lesions Neurologic: no localized weakness, no numbness and no paresthesia Endocrine: no fatigue Hematologic / Lymphatic: no easy bleeding and no easy bruising Physical Exam Constitutional: well developed and well nourished; no acute distress Eyes: + anicteric sclerae; pupils not irregular Respiratory: normal respiratory effort; no respiratory distress, does not use accessory muscles and no cough Cardiovascular: Rate/Rhythm: regular rhythm and + tachycardic Gastrointestinal (Abdomen): Urostomy in place draining cloudy urine, postsurgical scars of the abdomen. Musculoskeletal: Extremities: extremities normal to inspection Skin: normal turgor; no rashes and no lesions Neurologic: moves all extremities and awake Psychiatric: Orientation: alert and oriented x 3 Results & Data ([facility]) Vital Signs (Past 12 Hours) Vital Signs Temp Pulse Pulse Resp BP BP Pulse Ox 01/25/21 15:27 100 H 16 108/74 92 01/25/21 13:42 37.2 C 102 H 16 149/92 H 93 01/25/21 11:41 97 H 22 125/80 96 01/25/21 11:00 87 25 H 01/25/21 10:50 90 19 01/25/21 10:40 92 H 24 01/25/21 10:30 91 H 14 01/25/21 10:20 91 H 28 H 01/25/21 10:12 94 H 17 01/25/21 10:00 89 26 H 96 01/25/21 09:50 91 H 22 95 01/25/21 09:40 89 23 94 01/25/21 09:30 85 25 H 90 01/25/21 09:20 79 20 96 01/25/21 09:10 82 17 98 01/25/21 09:00 77 21 96 01/25/21 08:50 63 22 98 01/25/21 08:40 76 19 99 01/25/21 08:39 77 15 98 01/25/21 08:04 36.0 C L 73 20 91/64 L 98 PG Care Time/CCT Total # of Minutes Spent Total Time Spent with Patient: Total time spent is greater than 50% in coordination of care (as documented) at patient's floor/unit and/or counseling patient: Coding Level of Care Code 09900 Inpt Consult Level 4 Diagnoses Pyelonephritis N12 Bilateral hydronephrosis N13.30
--- NOTE | 2021-01-25 17:17 | Electrocardiogram Report ---
Test Reason : Blood Pressure : / mmHG Vent. Rate : 074 BPM Atrial Rate : 074 BPM P-R Int : 162 ms QRS Dur : 076 ms QT Int : 376 ms P-R-T Axes : 075 024 050 degrees QTc Int : 417 ms Normal sinus rhythm with sinus arrhythmia Normal ECG No previous ECGs available Confirmed by Dontrell Carrasco ([id number]) on 01/25/2021 5:16:48 PM Referred By: REFERRED SELF Confirmed By:Zana Carrasco
--- NOTE | 2021-01-25 20:11 | Discharge Summary ---
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 Describes pain as constant and nonradiating unable to further describe or identify any aggravating or alleviating factors. This morning felt sweaty then felt chilled. Denies any known fevers. Reports urine in bag appears to be clear yellow. Has not noted any hematuria. Denies abdominal pain. Reports does cough when he smokes. Denies N/V/D/C, WISE, dizziness, syncope, vision changes, neck pain, CP, SOB, orthopnea, palpitations, sore throat, choking, otalgia, rhinorrhea, paresthesias, weakness, extremity weakness, extremity edema, rashes. In ER patient afebrile, Initially mildly hypertensive with BP 91/64 up to 125/80 after 2 L NSS, P: 73, R: 20, 98% on room air. WBC: 15, Hgb: 12, BUN: 21, Cr: 1.2 (baseline~1.0). UA: + Nitrite, 3+ leuk esterase, >30 WBC, 4+ bacteria. CT ABD/PELVIS:. Postoperative changes of prior cystoprostatectomy with right lower quadrant ileal conduit. 2. Mild right and severe left hydroureteronephrosis has progressively worsened from 08/16/2020. Dilation of the ureters extends to the level of the ileal conduit without obstructing lesion or calculus identified. Findings may be secondary to a stricture. 3. Delayed left-sided nephrogram with urothelial thickening and enhancement. Correlate with urinalysis to exclude infection. 4. 2.4 x 2.1 cm lesion of the medial interpolar left kidney demonstrates apparent enhancement suspicious for a renal cell carcinoma In ER given 2 L NSS, Zosyn, Zofran, 4 mg morphine, 1 mg Dilaudid. ER had contacted urology-Dr. Lambert who feels patient may require nephrostomy tube and recommends patient be transferred. ER contacted to [facility] [place] who accepts in transfer however no beds immediately available. Patient placed on wait list. Dr. Marysol Cruz is accepting physician. Admission Exam Per Admitting Provider GENERAL: Alert and oriented x3. NAD, on RA. HEENT: No pallor, no icterus. Pupils equal, round and reactive to light. Oral mucosa moist. NECK: No JVD, no neck masses. HEART: S1 and S2 heard. Regular rate and rhythm. No murmur, no gallop. RESPIRATORY SYSTEM: Normal AP diameter. No accessory muscle use. No wheezing, no crackles. Decreased breath sounds bilateral ABDOMEN: Soft, bowel sounds present, nontender, no distention. lower abdomen midline incision - healed scar; Urostomy bag with cloudy urine CENTRAL NERVOUS SYSTEM: Alert and oriented x3. No facial droop. Speech is clear. Obeys simple commands. Moves extremities. EXTREMITIES: trace ble edema, no erythema seen. Principal Diagnosis Pyelonephritis Bilateral hydronephrosis Discharge Exam GENERAL: Alert and oriented x3. NAD, on RA. HEENT: No pallor, no icterus. Pupils equal, round and reactive to light. Oral mucosa moist. NECK: No JVD, no neck masses. HEART: S1 and S2 heard. Regular rate and rhythm. No murmur, no gallop. RESPIRATORY SYSTEM: Normal AP diameter. No accessory muscle use. No wheezing, no crackles. Decreased breath sounds bilateral ABDOMEN: Soft, bowel sounds present, nontender, no distention. lower abdomen midline incision - healed scar; Urostomy bag with cloudy urine CENTRAL NERVOUS SYSTEM: Alert and oriented x3. No facial droop. Speech is clear. Obeys simple commands. Moves extremities. EXTREMITIES: trace ble edema, no erythema seen. 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 Describes it as a steady pain with no radiation, 6-7 over 10 at onset, relieved to 0/10 by pain medication at ER, no exacerbating or relieving factor, associated with sweating and chills, no fever. Patient reports no change in the volume/frequency/color of urinary collection in the urostomy bag. Denies belly pain/chest pain. Admitting CTAP:Mild right and severe left hydroureteronephrosis has progressively worsened from 08/16/2020. Dilation of the ureters extends to the level of the ileal conduit without obstructing lesion or calculus identified. Findings may be secondary to a stricture. Upon admission, urinalysis suggestive of UTI, Urine Cx and Bl Cx are drawn and pending, will continue with Zosyn started in ER, ER already reached out to urology (Dr. Lambert) certified pediatric nurse practitioner who recommends transfer given the patient's anatomy and the possibility of nephrostomy tubes. ER doctor already discussed the case with Dr. Velazquez, the triage physician at [facility], patient accepted pending bed availability. Besides his acute problem, he was managed for the following: ABNORMAL CT SCAN CT ABD/PELVIS:.2.4 x 2.1 cm lesion of the medial interpolar left kidney demonstrates apparent enhancement suspicious for a renal cell carcinoma Will require further follow-up HTN Hold lisinopril for now as initially hypotensive in ER DYSLIPIDEMIA Continue atorvastatin TOBACCO USE Denies nicotine patch Smoking cessation recommended ALCOHOL USE Reports 3 shots hard liquor daily. Denies history alcohol withdrawal Monitor for withdrawal symptoms DVT Prophylaxis SCDs DNR/DNI as per discussion with pt Follows with Dr Bell for routine care Pt got bed assigned and will be a tranfer out to [facility] in few hours today. Inpatient meds are in the instruction section of the discharge plan. Total Time Total Time Spent Total Time Spent (In Minutes): 45 Discharge Plan Discharge Items Patient Disposition: Transfer Acute Care Hospital Reason For Visit: PYELONEPHRITIS Discharge Diagnosis: Pyelonephritis Bilateral hydronephrosis Activity: Resume your previous activity Non-emergency contact: Primary Care Provider Call non-emergency contact if: you have any medication questions and your symptoms worsen Follow-up/Referrals: Lake Bell MD [Primary Care Provider] - Diet: Clear liquid Addtl Attending Provider Instructions: Patient being transferred to tertiary care center for possible bilateral nephrostomy tube placement by IR. Patient was on following medication while inpatient: Current Inpatient Medications Acetaminophen (Acetaminophen 325 Mg Tab) 650 mg PO Q4H PRN PRN Reason: Pain or Fever Stop: 02/24/21 15:08 Atorvastatin Calcium (Atorvastatin 40 Mg Tab) 40 mg PO QDL TAMARA Stop: 02/25/21 11:29 Hydromorphone HCl (Hydromorphone Inj 0.5 Mg/0.5 Ml Syr) 0.5 mg IV Q6H PRN PRN Reason: Pain Stop: 02/08/21 15:08 Sodium Chloride (Nss 1000ml) 1,000 mls @ 100 mls/hr IV .Q10H TAMARA Stop: 01/26/21 11:59 Last Admin: 01/25/21 19:08 Dose: 100 mls/hr Documented by: Piperacillin Sod/Tazobactam (Sod 3.375 gm/ Dextrose) 115 mls @ 28.75 mls/hr IV Q8H TAMARA; Protocol Stop: 02/04/21 15:59 Last Admin: 01/25/21 19:07 Dose: 28.8 mls/hr Documented by: Miscellaneous Information (Piperacill/Tazobac Consult Active) 1 ea N/A UD PRN PRN Reason: Consult Stop: 02/24/21 10:15 Ondansetron HCl (Ondansetron Inj 2 Mg/Ml 2 Ml Vial) 4 mg IV Q6H PRN PRN Reason: Nausea Stop: 02/24/21 15:08 Pantoprazole Sodium (Pantoprazole 40 Mg Tab) 40 mg PO QDL TAMARA Stop: 02/25/21 11:29 Polyethylene Glycol (Polyethylene (Miralax) 17 Gm Pack) 17 gm PO DAILY PRN PRN Reason: Constipation Stop: 02/24/21 15:08 Pending Studies at Discharge: Yes (admitting Urine Cx and Bl Cx. ) Stand-Alone Forms: My [facility] Skilled Items Patient informed of condition?: Yes DNR: Yes Discharge Level of Care: Other Communicable Disease: No Discharge Prognosis: Stable Lines: Peripheral IV Urinary Catheter: No Medications and DC Order Prescriptions: Continued atorvastatin 40 mg tablet 40 mg PO QDL RF: 0 vitamin B complex Tablet Extended Release 1 tab PO QDL RF: 0 aspirin 81 mg Tablet,Delayed Release (Dr/Ec) 81 mg PO QDL RF: 0 ascorbic acid (vitamin C) 500 mg Tablet 500 mg PO QDL RF: 0 lansoprazole 30 mg capsule,delayed release(DR/EC) 30 mg PO QDL RF: 0 lisinopril 40 mg tablet 40 mg PO PM RF: 0 [id number] 0.4-162-18 mg Tablet 1 tab PO QDL RF: 0 lutein 20 mg Tablet 20 mg PO QDL RF: 0 acetaminophen 500 mg Tablet 1,000 mg PO HS RF: 0 vitamin E 400 unit Tablet 45 mg PO QDL RF: 0 Discharge Orders: Discharge Order (Routine); Ordered 01/25/21 Ordered By: Willis Rivera Admission Data Admit Date/Time: 01/25/21 12:41 Attending Provider: Willis Rivera Admit Provider: Willis Rivera Primary Care Provider: Lake Bell Other Providers: Willis Rivera ; Jose Lambert
[2021-01-25] MEDS ORDERED: ACETAMINOPHEN 500 MG TAB PO SCH (21:00)
[2021-01-26] MEDS ORDERED: PANTOprazole 40 MG TAB PO SCH (11:30)
[2021-01-26] MEDS ORDERED: ATORVASTATIN 40 MG TAB PO SCH (11:30)
== END 2021-01-26 09:42 | disposition short-term general hospital (02) | DRG 690 ==
LOC: ED 07:51 → SUATTDRO 12:41 → EDINP 12:41